=== PATIENT | male | born 1940 | race Caucasian/White ===

== ENCOUNTER 2019-11-10 13:12 | Outpatient (CLI) | payer MEDICARE, OTHER, SELFPAY ==
[2019-11-10 14:03] LABS: Basophils # 0.1 10^3/uL (0.0-0.1); Basophils % 0.7 %; Eosinophils # 0.2 10^3/uL (0.0-0.8); Eosinophils % 2.7 %; Hematocrit 38.9 % (42.0-52.0); Hemoglobin 12.4 g/dL (11.7-16.6); Lymphocytes # 2.3 10^3/uL (0.8-4.8); Lymphocytes % 31.8 %; Mean Corpuscular HGB Conc 31.9 g/dL (30.0-36.0); Mean Corpuscular Hemoglobin 30.7 pg (28.0-34.0); Mean Corpuscular Volume 96.3 fL (80-94); Mean Platelet Volume 9.8 fL (7.4-10.4); Monocytes # 0.5 10^3/uL (0.2-0.9); Monocytes % 7.2 %; Neutrophils # 4.2 10^3/uL (1.8-7.7); Neutrophils % 57.3 %; Nucleated Red Blood Cells % 0 %; Platelet Count 299 10^3/cmm (130-400); Red Blood Count 4.04 10^6/uL (4.1-5.3); Red Cell Distribution Width 13.6 % (12.1-15.1); White Blood Count 7.4 10^3/uL (4.0-10.0)
[2019-11-10 14:24] LABS: Testosterone Total 2.5 ng/dL (193-740)
[2019-11-10 14:25] LABS: Prostate Specific Antigen < 0.02 ng/mL (0-4)
[2019-11-10 14:36] LABS: Alanine Aminotransferase 16 U/L (0-41); Albumin Level 4.9 g/dL (3.5-5.2); Alkaline Phosphatase 105 IU/L (40-130); Aspartate Amino Transferase 19 U/L (0-40); Blood Urea Nitrogen 22 mg/dL (8-23); Calcium 10.8 mg/dL (8.5-10.5); Carbon Dioxide 23 mmol/L (22-29); Chloride 103 mmol/L (98-107); Globulin 2.7 g/dL (1.3-4.6); Glucose 92 mg/dL (65-115); Sodium 139 mmol/L (136-145); Total Bilirubin 0.3 mg/dL (0.15-1.2); Total Protein 7.6 g/dL (6.6-8.7)
== END 2019-11-10 13:13 | disposition home or self-care (01) ==
LOC: ONCMED 13:18
PROVIDERS: Family Provider Internal Medicine; PCP Internal Medicine; Visit Provider Internal Medicine Medical Oncology
DX: C61 Malignant neoplasm of prostate (principal)
CPT/HCPCS: 36415; 80053; 84153; 84403; 85025

== ENCOUNTER 2019-11-12 08:52 | Outpatient (CLI) | payer MEDICARE, OTHER, SELFPAY ==
--- NOTE | 2019-11-12 15:13 | ONC FU_ITS ---
Dr. Mcdonald Patient Follow-Up Note Patient: Matt Bedoya Unit #: [id number]: 1940 Dicatated By: Regino Mcdonald M.D.Date of Visit:Nov 12, 2019 Onc Med Follow-up/Prog Note Chief Complaint: Prostate cancer. History of Present Illness: This is a 79 year-old man with [place] score 7 adenocarcinoma of the prostate, stage IV (pT3a, pN1, M0), with biochemical recurrence following prostatectomy and postoperative radiation. He was initially diagnosed with [place] score 7 adenocarcinoma of the prostate in 2003. His baseline PSA was 29.77 ng/mL. He underwent radical prostatectomy in October 2003. Pathology showed multifocal extracapsular extension with positive surgical margin. There was involvement in 1/2 right pelvic nodes and 0/1 left pelvic nodes. He was started on Depo-Lupron postoperatively. I am uncertain of the duration of the initial course of androgen deprivation therapy. However, he subsequently was referred for postoperative radiation. He completed treatment in April 2004 to a total dose of 6480 cGy. Sometime later he was discovered by Dr. John to have biochemical recurrence. By the patient's recollection this was possibly in the range of 8-10 years ago. The records are currently not available. In any case, at that point he restarted androgen deprivation therapy with Depo-Lupron in combination with bicalutamide. He had a good response, and he then continued treatment with Depo-Lupron at 6-month intervals together with bicalutamide 50 mg daily. I had seen him initially in January 2019, as he had opted to continue his further care locally. His most recent Depo-Lupron injection had been in May 2018. His PSA level had been checked on 01/12/2019, and it was < 0.04 ng/mL. I reviewed treatment options, and at that point he opted to continue with intermittent androgen deprivation. However, he did want to continue the bicalutamide. His other medical illnesses include hypertension, hyperlipidemia, GERD, and gout. 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 He has a history of smoking 1/2 pack of cigarettes daily for 20 years. He quit smoking 15 years ago. He is seen for a scheduled visit. He has been feeling good generally. He has good energy and he has normal activity. ECOG score is 0. Appetite is good. He has no fever, night sweats, or hot flashes. He has some sinus drainage and cough. He has no shortness of breath or chest pain. He currently has no GI or complaints. He has a little pain in his knees. He has no other joint or bone pain. He has no focal neurologic symptoms. Medications: Allopurinol 1 Tablet (of 300 mg) Oral daily, Bicalutamide 1 Tablet (of 50 mg) Oral daily, Gemfibrozil 1 Tablet (of 600 mg) Oral b.i.d., Losartan Potassium 0.5 Tablet (of 50 mg) Oral daily, Omeprazole 1 Capsule (of 40 mg) Oral daily, Oxazepam 1 Tablet (of 10 mg) Capsule Oral PRN, Tamsulosin HCl 1 Capsule (of 0.4 mg) Oral daily Allergies: Augmentin Review of Systems: Constitutional - His energy is good. He has normal activity. His appetite is good and his weight is up a few pounds. No fever, chills, hot flashes, or night sweats. ECOG score is 0, ENMT - He has sinus drainage with a productive cough in the mornings. No mouth sores. No sore throat or difficulty swallowing, Hematologic/Lymphatic - No abnormal bruising or bleeding, Respiratory - No shortness of breath. No pleuritic pain or hemoptysis, Cardiovascular - No angina pain. No palpitations, Gastrointestinal - No nausea or vomiting. His acid reflux is adequately managed with omeprazole. No diarrhea or constipation. No blood in the stool or black stools, Genitourinary (M) - No dysuria or hematuria. His bladder is working well with the Flomax. No urinary frequency. No urgency or incontinence, Musculoskeletal - He has some pain in his knees at times. He has no other joint or bone pain, Integumentary - No skin complications, Neurologic - He has occasional sinus headaches. No dizziness. No numbness/paresthesias or other focal neurologic symptoms, Psychiatric - No anxiety or depression. No insomnia. Vital Signs: Performed on Nov 12, 2019 09:07 Height - 74.00 in Weight - 194.0 lbs (HIGH) BSA - 2.15 sq.m BMI - 24.91 Temperature - 97.3 F (LOW) Pulse - 75 /min Respiration - 18 /min BP - 117/60 mm(hg) O2 Sat - 98 % Pain - 3 Physical Examination: Constitutional - He looks good generally, Eyes - Sclerae nonicteric. Conjunctivae clear, ENMT - No lesions noted in the oral cavity, Hematologic/Lymphatic - No cervical, clavicular, or axillary adenopathy, Respiratory - Lungs are clear with good air movement bilaterally, Cardiovascular - Heart rhythm is regular. There is no murmur, gallop, or rub noted, Abdomen - Soft. Liver and spleen are not enlarged. There is no abdominal mass or ascites noted and there is no inguinal adenopathy, Extremities - No edema, Neurologic - No focal neurologic deficits noted. Lab/Imaging: Test performed on Aug 11, 2019 13:19 Iron 100 ug/dL Sodium 139 mmol/L Testosterone, Total 2.5 ng/dL Vitamin B12 327 pg/mL Potassium 4.4 mmol/L % Iron Saturation 37.1 % Chloride 103 mmol/L CO2 23 mmol/L UIBC 169 ug/dL Anion Gap 17.4 BUN 23 mg/dL Creatinine 1.3 mg/dL Cr Clearance (Est) 56.46 mL/min Glucose 106 mg/dl Calcium 10.1 mg/dL Protein, Total 7.2 g/dL Albumin 4.8 g/dL Globulin 2.4 gm/dL Bilirubin, Total 0.3 mg/dL ALT (SGPT) 14 U/L AST (SGOT) 16 U/L Alkaline Phosphatase 88 U/L WBC 6.0 10 3/uL RBC 3.73 10 6/uL HGB 11.2 g/dL HCT 34.9 % MCV 93.6 fl MCH 30.0 pg MCHC 32.1 g/dl RDW 13.4 % Platelet Count 270 10 3/cmm MPV 9.8 fl Neutrophils 3.3 10 3/uL Lymphocytes 2.1 10 3/uL Monocytes 0.5 10 3/uL Eosinophils 0.2 10 3/uL Basophils 0.0 10 3/uL Neutrophil % 53.9 % Lymphocyte % 34.5 % Monocyte % 7.8 % Eosinophil % 2.8 % Basophils % 0.7 % PSA < 0.02 ng/mL Impression: 1. Patient with [place] score 7 adenocarcinoma the prostate with biochemical recurrence following radical prostatectomy and postoperative radiation in 2003. 2. He had been on androgen deprivation therapy with Depo-Lupron and bicalutamide with adequate suppression of the PSA. His other medical illnesses include: 3. Hypertension. 4. Hyperlipidemia. 5. GERD. 6. Gout. 7. Degenerative arthritis/degenerative disease of the spine. Following his visit in January 2019 we opted to transition him to intermittent androgen deprivation. He was last given Depo-Lupron in May 2018. He did, however, continue bicalutamide. Thus far during follow-up his PSA level has remained adequately suppressed, currently < 0.02 ng/mL, and his testosterone level has remained in castrate range. He is borderline anemic. He appears to be doing well clinically. He has had improvement in his symptoms since stopping the Depo-Lupron, including resolution of hot flashes. Plan: He continues bicalutamide 50 mg daily. He will be scheduled for a follow-up visit with Dr. Kim in 3 months, and I will see magda again in 6 months. Signed By: Regino Mcdonald M.D. <<Signature on File>>
== END 2019-11-12 08:53 | disposition home or self-care (01) ==
PROVIDERS: Family Provider Internal Medicine; PCP Internal Medicine; Visit Provider Internal Medicine Medical Oncology
DX: C61 Malignant neoplasm of prostate (principal); I10 Essential (primary) hypertension; E78.5 Hyperlipidemia, unspecified; K21.9 Gastro-esophageal reflux disease without esophagitis; M10.9 Gout, unspecified; D64.9 Anemia, unspecified; M19.90 Unspecified osteoarthritis, unspecified site; Z79.899 Other long term (current) drug therapy; Z87.891 Personal history of nicotine dependence; Z92.3 Personal history of irradiation; Z92.23 Personal history of estrogen therapy; Z90.79 Acquired absence of other genital organ(s)
CPT/HCPCS: 99214

== ENCOUNTER 2020-05-17 13:43 | Outpatient (CLI) | payer MEDICARE, OTHER, SELFPAY ==
[2020-05-17 14:11] LABS: Basophils # 0.1 10^3/uL (0.0-0.1); Basophils % 0.8 %; Eosinophils # 0.2 10^3/uL (0.0-0.8); Eosinophils % 3.5 %; Hematocrit 36.6 % (42.0-52.0); Hemoglobin 11.8 g/dL (11.7-16.6); Lymphocytes # 2.2 10^3/uL (0.8-4.8); Lymphocytes % 33.8 %; Mean Corpuscular HGB Conc 32.2 g/dL (30.0-36.0); Mean Corpuscular Hemoglobin 30.4 pg (28.0-34.0); Mean Corpuscular Volume 94.3 fL (80-94); Monocytes # 0.5 10^3/uL (0.2-0.9); Monocytes % 6.8 %; Neutrophils # 3.61 10^3/uL (1.8-7.7); Neutrophils % 54.6 %; Nucleated Red Blood Cells % 0 %; Platelet Count 291 10^3/cmm (130-400); Red Blood Count 3.88 10^6/uL (4.1-5.3); White Blood Count 6.6 10^3/uL (4.0-10.0)
[2020-05-17 14:47] LABS: Prostate Specific Antigen 0.017 ng/mL (0-4); Testosterone Total 2.5 ng/dL (193-740)
[2020-05-17 14:58] LABS: Alanine Aminotransferase 15 U/L (0-41); Albumin Level 4.6 g/dL (3.5-5.2); Alkaline Phosphatase 86 IU/L (40-130); Anion Gap 17.4 (5-19); Aspartate Amino Transferase 19 U/L (0-40); Blood Urea Nitrogen 19 mg/dL (8-23); Calcium 10.2 mg/dL (8.5-10.5); Carbon Dioxide 21 mmol/L (22-29); Chloride 106 mmol/L (98-107); Globulin 2.1 g/dL (1.3-4.6); Glucose 116 mg/dL (65-115); Osmolality Calculated 287 mOsm/kg (285-295); Potassium 4.4 mmol/L (3.5-5.1); Sodium 140 mmol/L (136-145); Total Bilirubin 0.4 mg/dL (0.15-1.2); Total Protein 6.7 g/dL (6.6-8.7)
== END 2020-05-17 13:44 | disposition home or self-care (01) ==
LOC: ONCMED 13:49
PROVIDERS: PCP Internal Medicine; Visit Provider Internal Medicine Medical Oncology
DX: C61 Malignant neoplasm of prostate (principal)
CPT/HCPCS: 80053; 84153; 84403; 85025

== ENCOUNTER 2020-05-19 06:00 | Outpatient (CLI) | payer MEDICARE, OTHER, SELFPAY ==
--- NOTE | 2020-05-22 15:24 | ONC FU_ITS ---
Dr. Mcdonald Patient Follow-Up Note Patient: Matt Bedoya Unit #: [id number]: [id number] Dicatated By: Regino Mcdonald M.D.Date of Visit:May 19, 2020 Onc Med Follow-up/Prog Note Chief Complaint: Prostate cancer. History of Present Illness: This is a 79 year-old man with [place] score 7 adenocarcinoma of the prostate, stage IV (pT3a, pN1, M0), with biochemical recurrence following prostatectomy and postoperative radiation. He was initially diagnosed with [place] score 7 adenocarcinoma of the prostate in 2003. His baseline PSA was 29.77 ng/mL. He underwent radical prostatectomy in October 2003. Pathology showed multifocal extracapsular extension with positive surgical margin. There was involvement in 1/2 right pelvic nodes and 0/1 left pelvic nodes. He was started on Depo-Lupron postoperatively. I am uncertain of the duration of the initial course of androgen deprivation therapy. However, he subsequently was referred for postoperative radiation. He completed treatment in April 2004 to a total dose of 6480 cGy. Sometime later he was discovered by Dr. John to have biochemical recurrence. By the patient's recollection this was possibly in the range of 8-10 years ago. The records are currently not available. In any case, at that point he restarted androgen deprivation therapy with Depo-Lupron in combination with bicalutamide. He had a good response, and he then continued treatment with Depo-Lupron at 6-month intervals together with bicalutamide 50 mg daily. I had seen him initially in January 2019, as he had opted to continue his further care locally. His most recent Depo-Lupron injection had been in May 2018. His PSA level had been checked on 01/12/2019, and it was < 0.04 ng/mL. I reviewed treatment options, and at that point he opted to continue with intermittent androgen deprivation. However, he did want to continue the bicalutamide. His other medical illnesses include hypertension, hyperlipidemia, GERD, and gout. 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 He has a history of smoking 1/2 pack of cigarettes daily for 20 years. He quit smoking 15 years ago. He is seen for a scheduled visit. He has been feeling good generally. He has good energy and activity tolerance. ECOG score is 0. His appetite is good. He has no fever, night sweats, or hot flashes. He has some cough associated with sinus drainage. He has no shortness of breath or chest pain. He has no GI or complaints. He has pain in his right knee and he has some lower back pain. He has had frontal headache, presumably sinus related. He has no focal neurologic symptoms. Medications: Allopurinol 1 Tablet (of 300 mg) Oral daily, Bicalutamide 1 Tablet (of 50 mg) Oral daily, Gemfibrozil 1 Tablet (of 600 mg) Oral b.i.d., Losartan Potassium 0.5 Tablet (of 50 mg) Oral daily, Omeprazole 1 Capsule (of 40 mg) Oral daily, Oxazepam 1 Tablet (of 10 mg) Capsule Oral PRN, Tamsulosin HCl 1 Capsule (of 0.4 mg) Oral daily Allergies: Augmentin Review of Systems: Constitutional - He is feeling good. His energy is good and he has normal activity without restrictions. His appetite is good and his weight is down a few pounds. No fever, night sweats, or hot flashes. ECOG score is 0, ENMT - He has sinus congestion/drainage. He has some sinus pressure above his eyes. No mouth sores. No sore throat or difficulty swallowing, Hematologic/Lymphatic - No abnormal bruising or bleeding, Respiratory - No shortness of breath. No cough. No pleuritic pain or hemoptysis, Cardiovascular - No angina pain. No palpitations, Gastrointestinal - No nausea or vomiting. No heartburn or acid reflux. No diarrhea or constipation. No blood in the stool or black stools, Genitourinary (M) - No dysuria or hematuria. He has urinary frequency and nocturia. No urgency or incontinence, Musculoskeletal - His has joint pain in his right knee and he has pain in his lower back. This is chronic and unchanged, Integumentary - No skin complications, Neurologic - No headache or dizziness. No numbness or tingling. No other focal neurologic symptoms, Psychiatric - No anxiety or depression. No insomnia. Vital Signs: Performed on May 19, 2020 08:57 Height - 74.00 in Weight - 191.8 lbs (LOW) BSA - 2.13 sq.m BMI - 24.63 Temperature - 97.3 F (LOW) Pulse - 76 /min Respiration - 18 /min BP - 140/73 mm(hg) O2 Sat - 99 % Pain - 9 Physical Examination: Constitutional - He looks good generally, Eyes - Sclerae nonicteric. Conjunctivae clear, ENMT - No lesions noted in the oral cavity, Hematologic/Lymphatic - No cervical, clavicular, or axillary adenopathy, Respiratory - Lungs are clear with good air movement bilaterally, Cardiovascular - Heart rhythm is regular. There is no murmur, gallop, or rub noted, Abdomen - Soft. Liver and spleen are not enlarged. There is no abdominal mass or ascites noted and there is no inguinal adenopathy, Extremities - No edema, Neurologic - No focal neurologic deficits noted. Lab/Imaging: CBC shows hemoglobin 11.8 g, white blood cell count 6600, and platelet count 291,000. The red cell indices are borderline macrocytic. Comprehensive metabolic profile shows stable renal function with BUN 19 and creatinine 1.3 mg/dL. Liver enzymes are normal. PSA level remains low at 0.017 ng/mL. His total testosterone remains in castrate range at 2.5 ng/dL. Impression: 1. Patient with [place] score 7 adenocarcinoma the prostate with biochemical recurrence following radical prostatectomy and postoperative radiation in 2003. 2. He had been on androgen deprivation therapy with Depo-Lupron and bicalutamide with adequate suppression of the PSA. His other medical illnesses include: 3. Hypertension. 4. Hyperlipidemia. 5. GERD. 6. Gout. 7. Degenerative arthritis/degenerative disease of the spine. Following his visit in January 2019 we opted to transition him to intermittent androgen deprivation. He was last given Depo-Lupron in May 2018. He did, however, continue bicalutamide. Thus far during follow-up his PSA level has remained adequately suppressed, currently < 0.02 ng/mL, and his testosterone level has remained in castrate range. He had improvement in his symptoms after stopping the Depo-Lupron, including resolution of hot flashes. During follow-up he has continued treatment with bicalutamide, which he tolerates well. Thus far his PSA level has remained adequately suppressed. He remains borderline anemic, but he does not appear to be symptomatic with it. Overall, he appears to be doing well clinically. Plan: He continues bicalutamide 50 mg daily. He will be scheduled for a follow-up visit with Dr. Kim in 3 months, and I will see hijulito again in 6 months. Signed By: Regino Mcdonald M.D. <<Signature on File>>
== END 2020-05-19 06:01 | disposition home or self-care (01) ==
LOC: ONCMED 06:04
PROVIDERS: PCP Internal Medicine; Visit Provider Internal Medicine Medical Oncology
DX: C61 Malignant neoplasm of prostate (principal); Z90.79 Acquired absence of other genital organ(s); Z92.3 Personal history of irradiation; Z79.899 Other long term (current) drug therapy; I10 Essential (primary) hypertension; E78.5 Hyperlipidemia, unspecified; K21.9 Gastro-esophageal reflux disease without esophagitis; M47.9 Spondylosis, unspecified
CPT/HCPCS: 99214

== ENCOUNTER 2020-11-03 14:34 | Outpatient (CLI) | payer MEDICARE, OTHER, SELFPAY ==
[2020-11-03 15:16] LABS: Basophils # 0.1 10^3/uL (0.0-0.1); Basophils % 0.8 %; Eosinophils # 0.3 10^3/uL (0.0-0.8); Eosinophils % 3.1 %; Hematocrit 37.4 % (42.0-52.0); Hemoglobin 12.5 g/dL (11.7-16.6); Lymphocytes # 2.8 10^3/uL (0.8-4.8); Lymphocytes % 33.5 %; Mean Corpuscular HGB Conc 33.4 g/dL (30.0-36.0); Mean Corpuscular Hemoglobin 30.9 pg (28.0-34.0); Mean Corpuscular Volume 92.3 fL (80-94); Mean Platelet Volume 9.8 fL (7.4-10.4); Monocytes # 0.5 10^3/uL (0.2-0.9); Monocytes % 5.6 %; Neutrophils # 4.73 10^3/uL (1.8-7.7); Neutrophils % 56.6 %; Nucleated Red Blood Cells % 0 %; Platelet Count 333 10^3/cmm (130-400); Red Blood Count 4.05 10^6/uL (4.1-5.3); Red Cell Distribution Width 13.4 % (12.1-15.1); White Blood Count 8.4 10^3/uL (4.0-10.0)
[2020-11-03 15:42] LABS: Prostate Specific Antigen 0.022 ng/mL (0-4); Testosterone Total 2.5 ng/dL (193-740)
[2020-11-03 15:55] LABS: Alanine Aminotransferase 13 U/L (0-41); Albumin Level 4.6 g/dL (3.5-5.2); Alkaline Phosphatase 96 IU/L (40-130); Aspartate Amino Transferase 14 U/L (0-40); Blood Urea Nitrogen 22 mg/dL (8-23); Calcium 10.2 mg/dL (8.5-10.5); Carbon Dioxide 24 mmol/L (22-29); Chloride 104 mmol/L (98-107); Globulin 2.9 g/dL (1.3-4.6); Glucose 108 mg/dL (65-115); Osmolality Calculated 294 mOsm/kg (285-295); Sodium 140 mmol/L (136-145); Total Bilirubin 0.3 mg/dL (0.15-1.2); Total Protein 7.5 g/dL (6.6-8.7)
== END 2020-11-03 14:35 | disposition home or self-care (01) ==
LOC: ONCMED 14:39
PROVIDERS: PCP Internal Medicine; Visit Provider Internal Medicine Medical Oncology
DX: C61 Malignant neoplasm of prostate (principal); R97.20 Elevated prostate specific antigen [PSA]
CPT/HCPCS: 36415; 80053; 84153; 84403; 85025

== ENCOUNTER 2020-12-26 14:25 | Outpatient (CLI) | payer MEDICARE, OTHER, SELFPAY ==
[2020-12-26 14:57] LABS: Basophils # 0.1 10^3/uL (0.0-0.1); Basophils % 0.5 %; Eosinophils # 0.2 10^3/uL (0.0-0.8); Eosinophils % 1.7 %; Hematocrit 36.6 % (42.0-52.0); Lymphocytes # 2.5 10^3/uL (0.8-4.8); Lymphocytes % 25.2 %; Mean Corpuscular HGB Conc 32.8 g/dL (30.0-36.0); Mean Corpuscular Hemoglobin 30.5 pg (28.0-34.0); Mean Corpuscular Volume 93.1 fL (80-94); Mean Platelet Volume 9.9 fL (7.4-10.4); Monocytes # 0.6 10^3/uL (0.2-0.9); Monocytes % 5.9 %; Neutrophils # 6.53 10^3/uL (1.8-7.7); Neutrophils % 66.3 %; Nucleated Red Blood Cells % 0 %; Platelet Count 305 10^3/cmm (130-400); Red Blood Count 3.93 10^6/uL (4.1-5.3); Red Cell Distribution Width 13.4 % (12.1-15.1); White Blood Count 9.9 10^3/uL (4.0-10.0)
[2020-12-26 15:29] LABS: Prostate Specific Antigen 0.024 ng/mL (0-4); Testosterone Total 2.5 ng/dL (193-740)
[2020-12-26 15:43] LABS: Alanine Aminotransferase 11 U/L (0-41); Albumin Level 4.7 g/dL (3.5-5.2); Alkaline Phosphatase 97 IU/L (40-130); Anion Gap 15.2 (5-19); Aspartate Amino Transferase 13 U/L (0-40); Blood Urea Nitrogen 16 mg/dL (8-23); Calcium 10.1 mg/dL (8.5-10.5); Carbon Dioxide 21 mmol/L (22-29); Chloride 104 mmol/L (98-107); Globulin 2.4 g/dL (1.3-4.6); Glucose 114 mg/dL (65-115); Osmolality Calculated 284 mOsm/kg (285-295); Potassium 4.2 mmol/L (3.5-5.1); Sodium 136 mmol/L (136-145); Total Bilirubin 0.4 mg/dL (0.15-1.2); Total Protein 7.1 g/dL (6.6-8.7)
--- NOTE | 2020-12-30 07:52 | ONC FU_ITS ---
Dr. Mcdonald Patient Follow-Up Note Patient: Matt Bedoya Unit #: [id number]: [id number] Dicatated By: Regino Mcdonald M.D.Date of Visit:Dec 26, 2020 Onc Med Follow-up/Prog Note Chief Complaint: Prostate cancer. History of Present Illness: This is an 80 year-old man with [place] score 7 (4 + 3) adenocarcinoma of the prostate, stage IV (pT3a, pN1, M0), with biochemical recurrence following prostatectomy and postoperative radiation. He was initially diagnosed with [place] score 7 (4 + 3 ) adenocarcinoma of the prostate in 2003. His baseline PSA was 29.77 ng/mL. He underwent radical prostatectomy in October 2003. Pathology showed multifocal extracapsular extension with positive surgical margin. There was involvement in 1/2 right pelvic nodes and 0/1 left pelvic nodes. He was started on Depo-Lupron postoperatively. I was not able to determine the duration of the initial course of androgen deprivation therapy. However, he subsequently was referred for postoperative radiation. He completed treatment in April 2004 to a total dose of 6480 cGy. Sometime later he was discovered by Dr. John to have biochemical recurrence. By the patient's recollection this was sometime around 2009. The records were not available. In any case, at that point he restarted androgen deprivation therapy with Depo-Lupron in combination with bicalutamide. He had a good response, and he then continued treatment with Depo-Lupron at 6-month intervals together with bicalutamide 50 mg daily. I had seen him initially in January 2019, as he had opted to continue his further care locally. His most recent Depo-Lupron injection had been in May 2018. His PSA level had been checked on 01/12/2019, and it was < 0.04 ng/mL. I reviewed treatment options, and at that point he opted to continue with intermittent androgen deprivation. However, he did want to continue the bicalutamide. His other medical illnesses include hypertension, hyperlipidemia, GERD, and gout. 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 He has a history of smoking 1/2 pack of cigarettes daily for 20 years. He quit smoking 15 years ago. INTERIM HISTORY: After stopping the androgen deprivation therapy he did have resolution of hot flashes and other symptoms associated with his androgen deprivation therapy. During subsequent follow-up his PSA level has remained suppressed. His total testosterone levels, interestingly, have also remained in castrate range. He is seen for a scheduled visit. He has been feeling pretty good generally. He did have a brief febrile illness sometime in August or September, but he did test negative for COVID-19. He has pretty good energy and he has normal activity. Appetite is good. He has had no other fever and he does not complain of hot flashes or night sweating. He has some sinus drainage and cough. He does not complain of shortness of breath or chest pain. He has no GI or complaints. He has had some mild musculoskeletal pain, mainly in the neck. He has occasional sinus headache. He has no focal neurologic symptoms. Medications: Allopurinol 1 Tablet (of 300 mg) Oral daily, Bicalutamide 1 Tablet (of 50 mg) Oral daily, Gemfibrozil 1 Tablet (of 600 mg) Oral b.i.d., Losartan Potassium 0.5 Tablet (of 50 mg) Oral daily, Omeprazole 1 Capsule (of 40 mg) Oral daily, Oxazepam 1 Tablet (of 10 mg) Capsule Oral PRN, Tamsulosin HCl 1 Capsule (of 0.4 mg) Oral daily Allergies: Augmentin Vital Signs: Performed on Dec 26, 2020 16:12 Height - 74.00 in Weight - 187.8 lbs (LOW) BSA - 2.12 sq.m BMI - 24.11 Temperature - 98.2 F (LOW) Pulse - 76 /min Respiration - 18 /min BP - 152/75 mm(hg) (HIGH) O2 Sat - 96 % Pain - 0 Fatigue - 0 Physical Examination: Constitutional - He looks good generally, Eyes - Sclerae nonicteric. Conjunctivae clear, ENMT - No lesions noted in the oral cavity, Hematologic/Lymphatic - No cervical, clavicular, or axillary adenopathy, Respiratory - Lungs are clear with good air movement bilaterally, Cardiovascular - Heart rhythm is regular. There is no murmur, gallop, or rub noted, Abdomen - Soft. Liver and spleen are not enlarged. There is no abdominal mass or ascites noted and there is no inguinal adenopathy, Extremities - No edema, Neurologic - No focal neurologic deficits noted. Lab/Imaging: CBC shows hemoglobin 12.0 g, white blood cell count 9900, and platelet count 305,000. Comprehensive metabolic profile is unremarkable. His PSA is stable at 0.024 ng/mL with testosterone level 2.5 ng/dL. Problem List: 1. [place] score 7 (4 + 3) adenocarcinoma the prostate with biochemical recurrence following radical prostatectomy and postoperative radiation in 2003. 2. Hypertension. 3. Hyperlipidemia. 4. GERD. 5. Gout. 6. Degenerative arthritis/degenerative disease of the spine. Problems Addressed with this Encounter and Plan: Patient with [place] score 7 (4 + 3) adenocarcinoma the prostate with biochemical recurrence following radical prostatectomy and postoperative radiation in 2003. He began on androgen deprivation therapy with Depo-Lupron and bicalutamide sometime around 2009. He had a good response by PSA level. Following his visit in January 2019 we opted to transition him to intermittent androgen deprivation. He was last given Depo-Lupron in May 2018. He did, however, continue bicalutamide. Thus far during follow-up his PSA level has remained adequately suppressed. Interestingly, his testosterone level has remained in castrate range. He had improvement in his symptoms after stopping the Depo-Lupron, including resolution of hot flashes. Overall he has been doing very well clinically. He has remained borderline anemic, but he is not symptomatic with it. He has had no other adverse effects with the bicalutamide. His current PSA level remains adequately suppressed at 0.024 mg/dL. He will continue bicalutamide 50 mg daily. He will be scheduled for a follow-up visit with Dr. Kim in 3 months, and I will see magda again in 6 months. Signed By: Regino Mcdonald M.D. <<Signature on File>>
== END 2020-12-26 14:26 | disposition home or self-care (01) ==
LOC: ONCMED 14:30
PROVIDERS: PCP Internal Medicine; Visit Provider Internal Medicine Medical Oncology
DX: C61 Malignant neoplasm of prostate (principal); I10 Essential (primary) hypertension; E78.5 Hyperlipidemia, unspecified; K21.9 Gastro-esophageal reflux disease without esophagitis; M10.9 Gout, unspecified; M47.9 Spondylosis, unspecified; Z79.818 Long term (current) use of other agents affecting estrogen receptors and estrogen levels; Z79.899 Other long term (current) drug therapy
CPT/HCPCS: 36415; 80053; 84153; 84403; 85025; 99214

== ENCOUNTER 2021-03-29 10:20 | Outpatient (CLI) | payer MEDICARE, OTHER, SELFPAY ==
[2021-03-29 11:44] LABS: Prostate Specific Antigen 0.026 ng/mL (0-4)
== END 2021-03-29 10:21 | disposition home or self-care (01) ==
LOC: ONCMED 10:26
PROVIDERS: PCP Internal Medicine; Visit Provider Internal Medicine Medical Oncology
DX: C61 Malignant neoplasm of prostate (principal)
CPT/HCPCS: 36415; 84153

== ENCOUNTER 2021-06-15 10:11 | Outpatient (CLI) | payer MEDICARE, OTHER, SELFPAY ==
[2021-06-15 10:20] VITALS: BP 131/69; PULSE 82; RESP 18; TEMP 36.7; O2SAT 97; BMI 23.7
[2021-06-15 10:50] VITALS: BP 100/59; PULSE 77; RESP 16; TEMP 36.8; O2SAT 97
[2021-06-15 11:40] VITALS: BP 112/63; PULSE 69; RESP 16; TEMP 36.6
== END 2021-06-15 10:12 | disposition home or self-care (01) ==
PROVIDERS: PCP Internal Medicine; Visit Provider Physician Assistant
DX: U07.1 COVID-19 (principal)
CPT/HCPCS: 96365

== ENCOUNTER 2021-07-12 13:48 | Outpatient (CLI) | payer MEDICARE, OTHER, SELFPAY ==
[2021-07-12 14:45] LABS: Basophils % 0.6 %; Eosinophils # 0.3 10^3/uL (0.0-0.8); Eosinophils % 3.8 %; Hemoglobin 12.5 g/dL (11.7-16.6); Lymphocytes # 2.5 10^3/uL (0.8-4.8); Lymphocytes % 35.4 %; Mean Corpuscular HGB Conc 32.1 g/dL (30.0-36.0); Mean Corpuscular Hemoglobin 29.9 pg (28.0-34.0); Mean Corpuscular Volume 93.3 fl (80-94); Mean Platelet Volume 10.1 fL (7.4-10.4); Monocytes # 0.4 10^3/uL (0.2-0.9); Monocytes % 5.6 %; Neutrophils # 3.89 10^3/uL (1.8-7.7); Neutrophils % 54.5 %; Nucleated Red Blood Cells % 0 %; Platelet Count 254 10^3/cmm (130-400); Red Blood Count 4.18 10^6/uL (4.1-5.3); White Blood Count 7.1 10^3/uL (4.0-10.0)
[2021-07-12 15:25] LABS: Prostate Specific Antigen 0.023 ng/mL (0-4)
[2021-07-12 15:26] LABS: Testosterone Total < 2.5 ng/dL (193-740)
[2021-07-12 15:41] LABS: Alanine Aminotransferase 15 U/L (0-41); Albumin Level 4.2 g/dL (3.5-5.2); Alkaline Phosphatase 97 IU/L (40-130); Anion Gap 18.1 (5-19); Aspartate Amino Transferase 15 U/L (0-40); Blood Urea Nitrogen 15 mg/dL (8-23); Calcium 10.1 mg/dL (8.5-10.5); Carbon Dioxide 20 mmol/L (22-29); Chloride 104 mmol/L (98-107); Globulin 2.7 g/dL (1.3-4.6); Glucose 96 mg/dL (65-115); Osmolality Calculated 287 mOsm/kg (285-295); Potassium 4.1 mmol/L (3.5-5.1); Sodium 138 mmol/L (136-145); Total Bilirubin 0.3 mg/dL (0.15-1.2); Total Protein 6.9 g/dL (6.6-8.7)
--- NOTE | 2021-07-15 08:30 | ONC FU_ITS ---
Dr. Mcdonald Patient Follow-Up Note Patient: Matt Bedoya Unit #: [id number]: 1940 Dicatated By: Regino Mcdonald M.D.Date of Visit:Jul 12, 2021 Onc Med Follow-up/Prog Note Chief Complaint: Prostate cancer. History of Present Illness: This is an 81 year-old man with [place] score 7 (4 + 3) adenocarcinoma of the prostate, stage IV (pT3a, pN1, M0), with biochemical recurrence following prostatectomy and postoperative radiation. He was initially diagnosed with Marina score 7 (4 + 3 ) adenocarcinoma of the prostate in 2003. His baseline PSA was 29.77 ng/mL. He underwent radical prostatectomy in October 2003. Pathology showed multifocal extracapsular extension with positive surgical margin. There was involvement in 1/2 right pelvic nodes and 0/1 left pelvic nodes. He was started on Depo-Lupron postoperatively. I was not able to determine the duration of the initial course of androgen deprivation therapy. However, he subsequently was referred for postoperative radiation. He completed treatment in April 2004 to a total dose of 6480 cGy. Sometime later he was discovered by Dr. John to have biochemical recurrence. By the patient's recollection this was sometime around 2009. The records were not available. In any case, at that point he restarted androgen deprivation therapy with Depo-Lupron in combination with bicalutamide. He had a good response, and he then continued treatment with Depo-Lupron at 6-month intervals together with bicalutamide 50 mg daily. I had seen him initially in January 2019, as he had opted to continue his further care locally. His most recent Depo-Lupron injection had been in May 2018. His PSA level had been checked on 01/12/2019, and it was < 0.04 ng/mL. I reviewed treatment options, and at that point he opted to continue with intermittent androgen deprivation. However, he did want to continue the bicalutamide. His other medical illnesses include hypertension, hyperlipidemia, GERD, and gout. 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 He has a history of smoking 1/2 pack of cigarettes daily for 20 years. He quit smoking 15 years ago. INTERIM HISTORY: After stopping the androgen deprivation therapy he did have resolution of hot flashes and other symptoms associated with his androgen deprivation therapy. During subsequent follow-up his PSA level has remained suppressed. His total testosterone levels, interestingly, have also remained in castrate range. He is seen for a scheduled visit. He has been feeling great, though he says he did have COVID-19 virus infection for 5 weeks ago. He was symptomatic enough to have the antibody infusion, but he recovered uneventfully. He now has good energy and activity tolerance. ECOG score is 0. His appetite is still a little off. He is not having fever and he does not complain of hot flashes or night sweating. He has occasional sinus drainage and he sometimes has cough with it. He does not complain of shortness of breath or chest pain. He currently has no GI complaints. Bladder function remains adequate with tamsulosin. For the past couple of years he has had lower back pain which acts up occasionally, and he does see Dr. Colon for that. He has no other joint or bone pain. He does not complain of headache or dizziness, and he has no focal neurologic symptoms. Medications: Allopurinol 1 Tablet (of 300 mg) Oral daily, Bicalutamide 1 Tablet (of 50 mg) Oral daily, Gemfibrozil 1 Tablet (of 600 mg) Oral b.i.d., Losartan Potassium 0.5 Tablet (of 50 mg) Oral daily, Omeprazole 1 Capsule (of 40 mg) Oral daily, Oxazepam 1 Tablet (of 10 mg) Capsule Oral PRN, Tamsulosin HCl 1 Capsule (of 0.4 mg) Oral daily Allergies: Augmentin Vital Signs: Performed on Jul 12, 2021 15:57 Height - 74.00 in Weight - 184 lbs (LOW) BSA - 2.10 sq.m BMI - 23.62 Temperature - 97.4 F (LOW) Pulse - 76 /min Respiration - 18 /min BP - 131/70 mm(hg) O2 Sat - 96 % Pain - 0 Fatigue - 0 Physical Examination: Constitutional - He looks good generally, Eyes - Sclerae nonicteric. Conjunctivae clear, ENMT - No lesions noted in the oral cavity, Hematologic/Lymphatic - No cervical, clavicular, or axillary adenopathy, Respiratory - Lungs are clear with good air movement bilaterally, Cardiovascular - Heart rhythm is regular. There is no murmur, gallop, or rub noted, Abdomen - Soft. Liver and spleen are not enlarged. There is no abdominal mass or ascites noted and there is no inguinal adenopathy, Extremities - No edema, Neurologic - No focal neurologic deficits noted. Lab/Imaging: Test performed on Jul 12, 2021 14:10 Sodium 138 mmol/L Testosterone, Total < 2.5 ng/dL Potassium 4.1 mmol/L Chloride 104 mmol/L CO2 20 mmol/L Anion Gap 18.1 BUN 15 mg/dL Creatinine 1.1 mg/dL Cr Clearance (Est) 62.18 mL/min Glucose 96 mg/dL Osmolality - Calculated 287 mOsm/kg Calcium 10.1 mg/dL Protein, Total 6.9 g/dL Albumin 4.2 g/dL Globulin 2.7 g/dL Bilirubin, Total 0.3 mg/dL ALT (SGPT) 15 U/L AST (SGOT) 15 U/L Alkaline Phosphatase 97 IU/L WBC 7.1 10 3/uL RBC 4.18 10 6/uL HGB 12.5 g/dL HCT 39.0 % MCV 93.3 fl MCH 29.9 pg MCHC 32.1 g/dL RDW 14.0 % Platelet Count 254 10 3/cmm MPV 10.1 fL Neutrophils 3.89 10 3/uL Lymphocytes 2.5 10 3/uL Monocytes 0.4 10 3/uL Eosinophils 0.3 10 3/uL Basophils 0.0 10 3/uL Neutrophil % 54.5 % Lymphocyte % 35.4 % Monocyte % 5.6 % Eosinophil % 3.8 % Basophils % 0.6 % NRBC % 0 % PSA 0.023 ng/mL Problem List: 1. Marina score 7 (4 + 3) adenocarcinoma the prostate with biochemical recurrence following radical prostatectomy and postoperative radiation in 2003. 2. Hypertension. 3. Hyperlipidemia. 4. GERD. 5. Gout. 6. Degenerative arthritis/degenerative disease of the spine. Problems Addressed with this Encounter and Plan: 1. Patient with Marina score 7 (4 + 3) adenocarcinoma the prostate with biochemical recurrence following radical prostatectomy and postoperative radiation in 2003. He began on androgen deprivation therapy with Depo-Lupron and bicalutamide sometime around 2009. He had a good response by PSA level. Following his visit in January 2019 we opted to transition him to intermittent androgen deprivation. He was last given Depo-Lupron in May 2018. He did, however, continue bicalutamide. Thus far during follow-up his PSA level has remained adequately suppressed. Interestingly, his testosterone level has remained in castrate range. He had improvement in his symptoms after stopping the Depo-Lupron, including resolution of hot flashes. Overall he has been doing very well clinically. He has remained borderline anemic, but he has not been symptomatic with it. He has had no other adverse effects with the bicalutamide. At this point his hemoglobin remains borderline low at 12.5 g. His PSA remains adequately suppressed at 0.023 ng/mL and his testosterone level remains in castrate range at <2.5 ng/dL. He will continue bicalutamide 50 mg daily. He will be scheduled for laboratory studies in 3 months and for a follow-up visit in 6 months. 2. He is at risk for osteoporosis due to his antiandrogen therapy. As such, he will be scheduled for DEXA scan. He will be given treatment for bone health as indicated. Signed By: Regino Mcdonald M.D. <<Signature on File>>
== END 2021-07-12 13:49 | disposition home or self-care (01) ==
LOC: ONCMED 13:51
PROVIDERS: PCP Internal Medicine; Visit Provider Internal Medicine Medical Oncology
DX: C61 Malignant neoplasm of prostate (principal); I10 Essential (primary) hypertension; E78.5 Hyperlipidemia, unspecified; K21.9 Gastro-esophageal reflux disease without esophagitis; M10.9 Gout, unspecified; M19.90 Unspecified osteoarthritis, unspecified site; M47.9 Spondylosis, unspecified; Z79.899 Other long term (current) drug therapy; Z79.818 Long term (current) use of other agents affecting estrogen receptors and estrogen levels
CPT/HCPCS: 36415; 80053; 84153; 84403; 85025; 99214

== ENCOUNTER 2021-07-20 13:35 | Outpatient (CLI) | payer MEDICARE, OTHER, SELFPAY ==
--- NOTE | 2021-07-20 13:40 | XR_ITS ---
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 FINDINGS: The L1-L4 bone mineral density measures 1.199 g/cm2. This corresponds to a T score score of -0.2 and Z score of 0.4. Left femoral neck bone mineral density measures 0.837 g/cm2. This corresponds to a T score of -1.8 an d Z score of -0.8. Right femoral neck bone mineral density measures 0.826 g/cm2. This corresponds to a T score -1.9of an d Z score of -0.9. Mean femoral neck bone mineral density measures 0.831 g/cm2. This corresponds to a T score of -1.9 an d Z score of -0.8. XR/XR DEXA axial skeleton* [id number] IMPRESSION: Osteopenia in the femoral necks. Lumbar spine demonstrates normal bone minerali zation but likely spuriously elevated due to endplate sclerosis. Patient's FRAX calculated 10 year probability for major osteoporotic fracture i s 8.6 % and osteoporotic hip fracture is 3.4%.
== END 2021-07-20 13:36 | disposition home or self-care (01) ==
PROVIDERS: PCP Internal Medicine; Visit Provider Internal Medicine Medical Oncology
DX: C61 Malignant neoplasm of prostate (principal); Z79.899 Other long term (current) drug therapy; M85.88 Other specified disorders of bone density and structure, other site
CPT/HCPCS: 77080

== ENCOUNTER 2021-08-02 12:58 | Outpatient (CLI) | payer MEDICARE, OTHER, SELFPAY | END 2021-08-02 12:59 | disposition home or self-care (01) | LOC: ONCMED 13:03 | PROVIDERS: PCP Internal Medicine; Visit Provider Internal Medicine Medical Oncology | DX: M81.0 Age-related osteoporosis without current pathological fracture (principal) | CPT/HCPCS: 96372; J0897 ==

== ENCOUNTER 2021-10-17 13:34 | Outpatient (CLI) | payer MEDICARE, OTHER, SELFPAY ==
[2021-10-17 14:31] LABS: Prostate Specific Antigen 0.033 ng/mL (0-4)
[2021-10-17 14:34] LABS: Testosterone Total < 2.5 ng/dL (193-740)
== END 2021-10-17 13:35 | disposition home or self-care (01) ==
PROVIDERS: PCP Internal Medicine; Visit Provider Internal Medicine Medical Oncology
DX: C61 Malignant neoplasm of prostate (principal)
CPT/HCPCS: 36415; 84153; 84403

== ENCOUNTER → 2021-12-28 09:26 | Outpatient (BNVA) | payer MEDICARE, OTHER, SELFPAY | PROVIDERS: PCP Internal Medicine; Visit Provider Urology | DX: R30.0 Dysuria (principal); C61 Malignant neoplasm of prostate; R31.0 Gross hematuria | CPT/HCPCS: 81003 ==

== ENCOUNTER 2022-03-19 13:25 | Oncology outpatient (recurring) (ONCR) | payer MEDICARE, OTHER, SELFPAY ==
[2022-03-19 13:48] LABS: Basophils % 0.4 %; Eosinophils # 0.3 10^3/uL (0.0-0.8); Eosinophils % 2.9 %; Hematocrit 35.4 % (42.0-52.0); Hemoglobin 11.7 g/dL (11.7-16.6); Lymphocytes # 2.7 10^3/uL (0.8-4.8); Lymphocytes % 27.9 %; Mean Corpuscular HGB Conc 33.1 g/dL (30.0-36.0); Mean Corpuscular Hemoglobin 30.9 pg (28.0-34.0); Mean Corpuscular Volume 93.4 fl (80-94); Mean Platelet Volume 10.1 fL (7.4-10.4); Monocytes # 0.5 10^3/uL (0.2-0.9); Monocytes % 4.7 %; Neutrophils # 6.21 10^3/uL (1.8-7.7); Neutrophils % 63.6 %; Nucleated Red Blood Cells % 0 %; Platelet Count 274 10^3/cmm (130-400); Red Blood Count 3.79 10^6/uL (4.1-5.3); Red Cell Distribution Width 13.8 % (12.1-15.1); White Blood Count 9.8 10^3/uL (4.0-10.0)
[2022-03-19 14:13] LABS: Alanine Aminotransferase 6 U/L (0-41); Albumin Level 4.5 g/dL (3.5-5.2); Alkaline Phosphatase 60 IU/L (40-130); Anion Gap 15.4 (5-19); Aspartate Amino Transferase 17 U/L (0-40); Blood Urea Nitrogen 23 mg/dL (8-23); Calcium 10.9 mg/dL (8.5-10.5); Carbon Dioxide 21 mmol/L (22-29); Chloride 108 mmol/L (98-107); Globulin 2.5 g/dL (1.3-4.6); Glucose 107 mg/dL (65-115); Osmolality Calculated 294 mOsm/kg (285-295); Potassium 4.4 mmol/L (3.5-5.1); Prostate Specific Antigen 0.033 ng/mL (0-4); Sodium 140 mmol/L (136-145); Total Bilirubin 0.3 mg/dL (0.15-1.2)
[2022-03-19 15:14] LABS: Testosterone Total 2.5 ng/dL (193-740)
== END 2022-03-22 23:59 | disposition home or self-care (01) ==
PROVIDERS: PCP Internal Medicine; Visit Provider Internal Medicine Medical Oncology
DX: C61 Malignant neoplasm of prostate (principal); D64.9 Anemia, unspecified; Z79.818 Long term (current) use of other agents affecting estrogen receptors and estrogen levels; Z79.899 Other long term (current) drug therapy; Z87.891 Personal history of nicotine dependence
CPT/HCPCS: 80053; 84153; 84403; 85025; 99214

== ENCOUNTER 2022-06-19 13:20 | Oncology outpatient (recurring) (ONCR) | payer MEDICARE, OTHER, SELFPAY | END 2022-06-22 23:59 | disposition home or self-care (01) | PROVIDERS: PCP Internal Medicine; Visit Provider Internal Medicine Medical Oncology | DX: C61 Malignant neoplasm of prostate (principal) | CPT/HCPCS: 80053; 84153; 84403; 85025 ==

== ENCOUNTER 2022-08-20 07:35 | Outpatient (CLI) | payer MEDICARE, OTHER, SELFPAY ==
--- NOTE | 2022-08-20 07:47 | NM_ITS ---
WS: [id number] NUCLEAR MEDICINE HIDA SCAN CLINICAL INFORMATION: GENERALIZED ABDOMINAL PAIN TECHNIQUE: Following intravenous administration of 4.9 mCi of technetium 99m mebrofenin, images of th e abdomen were obtained over the course of 60 minutes. Next, gallbladder ejection fraction was determ ined by obtaining preprandial and one-hour postprandial images of the gallbladder following oral maria l stion of Ensure. COMPARISON: Ultrasound June 20 2022 FINDINGS: Normal hepatic uptake at 5 minutes.Normal hepatic excretion. Gallbladder is visualized by 15 minutes. No evidence of acute cholecystitis. Normal common bile duct and small bowel activity. Gallbladder ejection fraction 70% within normal limits. No evidence of chronic cholecystitis. NM/NM hepatobiliary w phar* [id number] IMPRESSION: 1. No evidence of acute or chronic cholecystitis. 2. Gallbladder ejection fraction 70% within normal limits.
== END 2022-08-20 07:36 | disposition home or self-care (01) ==
LOC: RAD 07:40
PROVIDERS: PCP Internal Medicine; Visit Provider Internal Medicine
DX: R10.84 Generalized abdominal pain (principal)
CPT/HCPCS: 78227; A9537

== ENCOUNTER → 2022-09-27 07:57 | Outpatient (BNVA) | payer MEDICARE, OTHER, SELFPAY | PROVIDERS: PCP Internal Medicine; Referring Provider Internal Medicine; Visit Provider Internal Medicine | DX: E05.90 Thyrotoxicosis, unspecified without thyrotoxic crisis or storm (principal); E21.3 Hyperparathyroidism, unspecified; R10.9 Unspecified abdominal pain | CPT/HCPCS: 82310; 83970; 99204 ==

== ENCOUNTER 2022-10-05 07:26 | Outpatient (CLI) | payer MEDICARE, OTHER, SELFPAY ==
--- NOTE | 2022-10-05 07:40 | CT_ITS ---
WS: [id number] CT ABDOMEN PELVIS TECHNIQUE: Contrast-enhanced CT of the abdomen and pelvis with coronal and sagittal reformatted image s. CLINICAL INFORMATION: ABD PAIN/WEIGHT LOSS/HX OF PROSTATE CA COMPARISON: None. DLP: 1134.[address] scans at [facility] use at least one of these dose optimization techniques: automated e xposure control; mA and/or kV adjustment per patient size (includes targeted exams where dose is matc hed to clinical indication); or iterative reconstruction. FINDINGS: Normal liver. Normal portal vein and splenic vein. Cholelithiasis. No gallbladder wall thickening or pericholecystic fluid. Normal portal vein and splenic vein. Normal pancreatic parenchymal enhancement . Tiny esophageal hiatal hernia. Calcified granulomas in the lung bases. Normal bilateral renal paren chymal enhancement. Atrophic LEFT kidney. Small renal cysts. Small fat-containing LEFT greater than R IGHT inguinal hernias. Degenerative cystic changes involving the LEFT femoral neck. Degenerative arthritis lumbar spine with disc space narrowing worse at L2-L3 and L4-L5 with subchondral cystic change. CT/CT abdomen pelvis w con* [id number] IMPRESSION: 1. Cholelithiasis. No gallbladder wall thickening or pericholecystic fluid. 2. No hydronephrosis in either kidney. Atrophic LEFT kidney. 3. No abdominal or pelvic lymphadenopathy. 4. No evidence of small or large bowel obstruction. 5. No abdominal or pelvic lymphadenopathy.
[2022-10-05] MEDS: iohexol 350 mg/mL 500 mL Btl (per mL) IV (08:30)
[2022-10-05 10:03] LABS: Blood Urea Nitrogen 19 mg/dL (8-23)
== END 2022-10-05 07:27 | disposition home or self-care (01) ==
PROVIDERS: PCP Internal Medicine; Visit Provider Surgery
DX: R10.9 Unspecified abdominal pain (principal); R63.4 Abnormal weight loss; Z85.46 Personal history of malignant neoplasm of prostate; K80.20 Calculus of gallbladder without cholecystitis without obstruction; N26.1 Atrophy of kidney (terminal)
CPT/HCPCS: 74177; 82565; 84520; Q9967

== ENCOUNTER 2022-10-16 11:02 | Oncology outpatient (recurring) (ONCR) | payer MEDICARE, OTHER, SELFPAY ==
[2022-10-16 12:14] LABS: Calcium 11.4 mg/dL (8.5-10.5)
[2022-10-16 14:25] LABS: Sodium 140 mmol/L (136-145)
[2022-10-16 14:26] LABS: Alanine Aminotransferase 12 U/L (0-41); Albumin Level 4.6 g/dL (3.5-5.2); Alkaline Phosphatase 142 U/L (40-130); Anion Gap 17.7 (5-19); Aspartate Amino Transferase 16 U/L (0-40); Blood Urea Nitrogen 23 mg/dL (8-23); Calcium 11.4 mg/dL (8.5-10.5); Carbon Dioxide 23 mmol/L (22-29); Chloride 104 mmol/L (98-107); Globulin 2.4 g/dL (1.3-4.6); Glucose 107 mg/dL (65-115); Osmolality Calculated 294 mOsm/kg (285-295); Potassium 4.7 mmol/L (3.5-5.1); Total Bilirubin 0.3 mg/dL (0.15-1.2)
== END 2022-10-23 23:59 | disposition home or self-care (01) ==
PROVIDERS: PCP Internal Medicine; Visit Provider Internal Medicine
DX: C61 Malignant neoplasm of prostate (principal); Z90.89 Acquired absence of other organs; D64.9 Anemia, unspecified; E21.3 Hyperparathyroidism, unspecified; Z79.818 Long term (current) use of other agents affecting estrogen receptors and estrogen levels; Z79.899 Other long term (current) drug therapy; Z87.891 Personal history of nicotine dependence
CPT/HCPCS: 36415; 80053; 82310; 99214

== ENCOUNTER 2022-11-01 09:13 | Outpatient (CLI) | payer MEDICARE, OTHER, SELFPAY ==
--- NOTE | 2022-11-01 09:26 | NM_ITS ---
WS: [email or web address] NUCLEAR MEDICINE PARATHYROID SCINTIGRAPHY INDICATION: Hyperparathyroidism. Increased calcium levels. TECHNIQUE: Parathyroid scintigraphy with 21.8 mCi of sestamibi was administered. AP and oblique views obtained with and without chin and suprasternal notch markers. Early and late imaging obtained. FINDINGS: Initial imaging demonstrates normal salivary gland uptake. Asymmetric increased uptake invo lving the RIGHT lower thyroid lobe. Homogeneous low grade uptake involving the LEFT thyroid lobe. No focal cold defects appreciated. Persistent intense focal uptake in the RIGHT lower lobe on the delayed imaging with normal washout of the LEFT thyroid. Findings suspicious for adenoma and correlation with ultrasound thyroid could be h elpful. No other suspicious findings. NM/NM parathyroid [id number] IMPRESSION: 1. Persistent intense focal activity in the RIGHT inferior thyroid lobe on the delayed imaging suspicious for retained parathyroid adenoma activity. This andrey ears to be slightly medial and posterior along the inferior thyroid lobe. 2. Recommend further evaluation with ultrasound for better anatomic detail. 3. Normal LEFT thyroid lobe washout.
== END 2022-11-01 09:14 | disposition home or self-care (01) ==
LOC: RAD 09:15
PROVIDERS: PCP Internal Medicine; Visit Provider Internal Medicine
DX: E21.3 Hyperparathyroidism, unspecified (principal)
CPT/HCPCS: 78070; 99214; A9500

== ENCOUNTER → 2022-12-19 14:04 | Outpatient (BNVA) | payer MEDICARE, OTHER, SELFPAY | PROVIDERS: PCP Internal Medicine; Visit Provider Internal Medicine | DX: E21.0 Primary hyperparathyroidism (principal) | CPT/HCPCS: 36415; 80053; 99214 ==

== ENCOUNTER 2022-12-20 14:47 | Outpatient (CLI) | payer MEDICARE, OTHER, SELFPAY ==
[2022-12-20 15:47] LABS: Calcium 12.9 mg/dL (8.5-10.5)
[2022-12-20 15:54] LABS: Parathyroid Hormone 287.1 pg/mL (15-65)
== END 2022-12-20 14:48 | disposition home or self-care (01) ==
LOC: LAB 14:52
PROVIDERS: PCP Internal Medicine; Visit Provider Internal Medicine
DX: E21.0 Primary hyperparathyroidism (principal)
CPT/HCPCS: 36415; 82310; 83970

== ENCOUNTER → 2022-12-27 10:21 | Outpatient (BNVA) | payer MEDICARE, OTHER, SELFPAY | PROVIDERS: PCP Internal Medicine; Visit Provider Urology | DX: C61 Malignant neoplasm of prostate (principal); Z87.440 Personal history of urinary (tract) infections; Z90.79 Acquired absence of other genital organ(s); R31.0 Gross hematuria | CPT/HCPCS: 81003; 99213 ==

== ENCOUNTER 2023-01-14 11:05 | Oncology outpatient (recurring) (ONCR) | payer MEDICARE, OTHER, SELFPAY ==
[2023-01-14 12:33] LABS: Alanine Aminotransferase 9 U/L (0-41); Albumin Level 4.1 g/dL (3.5-5.2); Alkaline Phosphatase 116 U/L (40-130); Anion Gap 15.6 (5-19); Aspartate Amino Transferase 16 U/L (0-40); Blood Urea Nitrogen 19 mg/dL (8-23); Calcium 10.8 mg/dL (8.5-10.5); Carbon Dioxide 20 mmol/L (22-29); Chloride 108 mmol/L (98-107); Globulin 2.3 g/dL (1.3-4.6); Glucose 94 mg/dL (65-115); Osmolality Calculated 290 mOsm/kg (285-295); Potassium 4.6 mmol/L (3.5-5.1); Sodium 139 mmol/L (136-145); Total Bilirubin 0.2 mg/dL (0.15-1.2); Total Protein 6.4 g/dL (6.6-8.7)
== END 2023-01-20 23:59 | disposition home or self-care (01) ==
LOC: ONCMED 11:07
PROVIDERS: PCP Internal Medicine; Visit Provider Internal Medicine Medical Oncology
DX: C61 Malignant neoplasm of prostate (principal)
CPT/HCPCS: 36415; 80053; 84153

== ENCOUNTER → 2023-02-19 14:48 | Outpatient (BNVA) | payer MEDICARE, OTHER, SELFPAY | PROVIDERS: PCP Internal Medicine; Visit Provider Internal Medicine | DX: E21.0 Primary hyperparathyroidism (principal); R53.83 Other fatigue | CPT/HCPCS: 99213; 99214 ==

== ENCOUNTER 2023-02-20 12:16 | Outpatient (CLI) | payer MEDICARE, OTHER, SELFPAY ==
--- NOTE | 2023-02-20 12:26 | MR_ITS ---
WS: [id number] MRI HEAD WITH CONTRAST WITH ATTENTION TO THE INTERNAL AUDITORY CANALS TECHNIQUE: Sagittal T1, T2 axial, T2 axial flair, axial susceptibility weighted imaging, axial diffus ion weighted images, and coronal T2 images were obtained. Pre and post T1 axial and post T1 coronal i mages. ADC and FSPGR images. Post gadolinium images with attention to the internal auditory canals. A xial fiesta imaging. CLINICAL INFORMATION: SENSORINEURAL HEARING LOSS, BILATERAL COMPARISON: None. FINDINGS: No evidence of restricted diffusion to suggest acute ischemia. Ventricular system and basal cisterns are patent. Mild small vessel changes. Mild small vessel changes in the jeremiah. Moderate parenchymal vo lume loss. Normal posterior fossa. Normal vascular flow voids at the skull base. No extra axial fluid collections. No evidence of mass or mass effect. Mild mucosal thickening in the paranasal sinuses. M astoid air cells well aerated. Mild mucosal thickening RIGHT mastoid tip. Normal posterior nasopharyn x. Normal parapharyngeal fat. Tiny punctate focus of hemosiderin in the RIGHT parasagittal parietal lobe. No other foci of hemoside rin. Proximal 7th and 8th cranial nerves are normal in appearance. Normal trigeminal nerve root entry zone s. No evidence of enhancing IAC or CP angle mass. No abnormal intracranial enhancement. Normal dural venous sinuses. MR/MR iac's wo/w con* [id number] IMPRESSION: 1. No evidence of enhancing IAC or CP angle mass. Proximal 7th and 8th cranial nerves are normal in appearance. 2. Normal trigeminal nerve root entry zones. 3. Mastoid air cells well aerated. Mild polypoid mucosal thickening in the par anasal sinuses. 4. Mild small vessel changes with moderate parenchymal volume loss worse in th e frontal lobes. 5. Tiny punctate focus of hemosiderin in the RIGHT parasagittal parietal lobe. No other foci of hemosiderin.
[2023-02-20] MEDS: gadobenate dimeglumine 20 mL vial IV (13:23)
== END 2023-02-20 12:17 | disposition home or self-care (01) ==
LOC: RAD 12:19
PROVIDERS: PCP Internal Medicine; Visit Provider Specialist
DX: H90.3 Sensorineural hearing loss, bilateral (principal)
CPT/HCPCS: 70553; A9577

== ENCOUNTER → 2023-04-25 11:17 | Outpatient (BNVA) | payer MEDICARE, OTHER, SELFPAY | PROVIDERS: PCP Internal Medicine; Visit Provider Internal Medicine | DX: E21.0 Primary hyperparathyroidism (principal); R53.83 Other fatigue | CPT/HCPCS: 82310; 83970; 99213 ==

== ENCOUNTER 2023-05-06 11:09 | Oncology outpatient (recurring) (ONCR) | payer MEDICARE, OTHER, SELFPAY ==
[2023-05-06 11:24] VITALS: BP 141/76; PULSE 80; RESP 18; TEMP 36.4; O2SAT 96
[2023-05-06 11:34] LABS: Basophils % 0.7 %; Eosinophils # 0.3 10^3/uL (0.0-0.8); Eosinophils % 5.4 %; Hematocrit 32.4 % (42.0-52.0); Hemoglobin 10.4 g/dL (11.7-16.6); Lymphocytes # 2.4 10^3/uL (0.8-4.8); Lymphocytes % 38.7 %; Mean Corpuscular HGB Conc 32.1 g/dL (30.0-36.0); Mean Corpuscular Hemoglobin 29.6 pg (28.0-34.0); Mean Corpuscular Volume 92.3 fl (80-94); Mean Platelet Volume 9.3 fL (7.4-10.4); Monocytes # 0.5 10^3/uL (0.2-0.9); Monocytes % 7.6 %; Neutrophils # 2.91 10^3/uL (1.8-7.7); Neutrophils % 47.3 %; Nucleated Red Blood Cells % 0 %; Platelet Count 241 10^3/cmm (130-400); Red Blood Count 3.51 10^6/uL (4.1-5.3); Red Cell Distribution Width 14.5 % (12.1-15.1); White Blood Count 6.2 10^3/uL (4.0-10.0)
[2023-05-06 12:06] LABS: Alanine Aminotransferase 9 U/L (0-41); Albumin Level 4.4 g/dL (3.5-5.2); Alkaline Phosphatase 112 U/L (40-130); Aspartate Amino Transferase 17 U/L (0-40); Blood Urea Nitrogen 22 mg/dL (8-23); Calcium 8.9 mg/dL (8.5-10.5); Carbon Dioxide 21 mmol/L (22-29); Chloride 112 mmol/L (98-107); Globulin 2.1 g/dL (1.3-4.6); Glucose 91 mg/dL (65-115); Osmolality Calculated 299 mOsm/kg (285-295); Prostate Specific Antigen 0.055 ng/mL (0-4); Sodium 143 mmol/L (136-145); Total Bilirubin 0.2 mg/dL (0.15-1.2); Total Protein 6.5 g/dL (6.6-8.7)
[2023-05-06 13:23] LABS: Ferritin 203 ng/mL (30-400); Iron 82 ug/dL (59-158); Percent Saturation 31.2 % (20-50); Total Iron Binding Capacity 262 mcg/dl; Unsaturated Iron Binding 180 ug/dL (112-347)
== END 2023-05-23 23:59 | disposition home or self-care (01) ==
PROVIDERS: Nurse Practitioner Family; PCP Internal Medicine; Visit Provider Internal Medicine Medical Oncology
DX: C61 Malignant neoplasm of prostate (principal); Z90.89 Acquired absence of other organs; Z79.899 Other long term (current) drug therapy; Z79.818 Long term (current) use of other agents affecting estrogen receptors and estrogen levels
CPT/HCPCS: 36415; 80053; 82728; 83540; 83550; 84153; 85025; 99214

== ENCOUNTER 2023-08-07 14:00 | Oncology outpatient (recurring) (ONCR) | payer MEDICARE, OTHER, SELFPAY ==
[2023-08-07 14:20] VITALS: BP 128/69; PULSE 88; RESP 16; TEMP 36.8; O2SAT 96
[2023-08-07 14:28] LABS: Basophils # 0.1 10^3/uL (0.0-0.1); Basophils % 0.6 %; Eosinophils # 0.3 10^3/uL (0.0-0.8); Eosinophils % 3.3 %; Hematocrit 33.6 % (37-53); Lymphocytes # 2.5 10^3/uL (0.8-4.8); Lymphocytes % 30.6 %; Mean Corpuscular HGB Conc 32.7 g/dL (30-55); Mean Corpuscular Hemoglobin 30.2 pg (27-33); Mean Corpuscular Volume 92.3 fl (82-101); Mean Platelet Volume 9.6 fL (7.4-10.4); Monocytes # 0.5 10^3/uL (0.2-0.9); Monocytes % 6.4 %; Neutrophils # 4.81 10^3/uL (1.8-7.7); Neutrophils % 58.7 %; Nucleated Red Blood Cells % 0 %; Platelet Count 282 10^3/cmm (157-399); Red Blood Count 3.64 10^6/uL (3.85-5.65); Red Cell Distribution Width 13.8 % (12.1-15.1); White Blood Count 8.18 10^3/uL (3.29-11.43)
[2023-08-07 14:53] LABS: Alanine Aminotransferase 7 U/L (0-41); Albumin Level 4.5 g/dL (3.5-5.2); Alkaline Phosphatase 109 U/L (40-130); Aspartate Amino Transferase 13 U/L (0-40); Blood Urea Nitrogen 22 mg/dL (8-23); Calcium 9.4 mg/dL (8.5-10.5); Carbon Dioxide 21 mmol/L (22-29); Chloride 107 mmol/L (98-107); Globulin 2.3 g/dL (1.3-4.6); Glucose 145 mg/dL (65-115); Osmolality Calculated 298 mOsm/kg (285-295); Prostate Specific Antigen 0.058 ng/mL (0-4); Sodium 141 mmol/L (136-145); Total Bilirubin 0.4 mg/dL (0.15-1.2); Total Protein 6.8 g/dL (6.6-8.7)
== END 2023-08-22 23:59 | disposition home or self-care (01) ==
LOC: ONCMED 14:01
PROVIDERS: Nurse Practitioner Family; PCP Internal Medicine; Visit Provider Internal Medicine Medical Oncology
DX: C61 Malignant neoplasm of prostate (principal); D64.9 Anemia, unspecified; Z79.899 Other long term (current) drug therapy; Z87.891 Personal history of nicotine dependence
CPT/HCPCS: 36415; 80053; 84153; 85025; 99213

== ENCOUNTER 2023-10-25 14:28 | Outpatient (CLI) | payer MEDICARE, SELFPAY ==
[2023-10-25 15:49] LABS: Calcium 9.1 mg/dL (8.5-10.5)
== END 2023-10-25 14:29 | disposition home or self-care (01) ==
LOC: LAB 14:30
PROVIDERS: PCP Internal Medicine; Visit Provider Internal Medicine
DX: E21.0 Primary hyperparathyroidism (principal); R53.83 Other fatigue
CPT/HCPCS: 36415; 82310; 83970

== ENCOUNTER → 2023-10-28 10:54 | Outpatient (BNVA) | payer MEDICARE, OTHER, SELFPAY | PROVIDERS: PCP Internal Medicine; Visit Provider Internal Medicine | DX: E21.0 Primary hyperparathyroidism (principal); R53.83 Other fatigue | CPT/HCPCS: 99214 ==

== ENCOUNTER 2023-10-29 14:26 | Outpatient (CLI) | payer MEDICARE, OTHER, SELFPAY ==
--- NOTE | 2023-10-29 14:33 | CT_ITS ---
WS: [id number] CT ABDOMEN WITHOUT CONTRAST HISTORY: ABDOMINAL PAIN Contiguous single phase 5 mm axial imaging performed to the abdomen. Oral contrast has not been provi ded. Coronal and sagittal reformats are submitted. All CT scans at [facility] use at least on e of these dose optimization techniques: automated exposure control; mA and/or kV adjustment per ciro ent size (includes targeted exams where dose is matched to clinical indication); or iterative reconst ruction. IV CONTRAST: None Oral contrast: No DLP: 255.14 mGy.cm COMPARISON: 10/05/2022 Lower thorax: Subcentimeter nodules at the lung bases. Only 1 of these is noncalcified. No change sin ce 10/05/2022. Heart is normal size. No hiatal hernia. Liver/biliary system: Normal size with no intrahepatic dilatation. Gallbladder: Slightly contracted gallbladder. Gallbladder contains at least 2 calcified gallstones wi th the largest measuring 15 mm. Pancreas: Normal size pancreas and pancreatic duct. No adjacent inflammation. Spleen: Normal size spleen. No mass or infarct. Adrenal glands: Normal. Right kidney: Normal size kidney. 11 mm cyst has been previously described in the mid kidney. No robb l obstruction. Left kidney: Mild cortical atrophy. No obstruction. Aorta: Moderate atherosclerosis with no aneurysm. Mild dilatation of the celiac axis. 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 Lymphadenopathy: None. Free fluid: None. GI tract: Stomach is markedly distended with fluid and food products. The small bowel as visualized i s negative. Scattered diverticula are disease throughout the visualized colon without acute diverticu litis. Abdominal wall: Unremarkable abdominal wall. No hernia. Visualized osseous structures: Mild chronic spondylitic changes in the lumbar spine. LEFT curvature. IMPRESSION: 1. Cholelithiasis without acute cholecystitis. 2. Atrophic LEFT kidney is unchanged. 3. 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 4. Constipation. No adenopathy.
== END 2023-10-29 14:27 | disposition home or self-care (01) ==
LOC: RAD 14:27
PROVIDERS: PCP Internal Medicine; Visit Provider Physician Assistant
DX: K80.20 Calculus of gallbladder without cholecystitis without obstruction (principal); K59.00 Constipation, unspecified
CPT/HCPCS: 74150

== ENCOUNTER 2023-11-04 09:36 | Oncology outpatient (recurring) (ONCR) | payer MEDICARE, OTHER, SELFPAY ==
[2023-11-04 10:00] LABS: Basophils # 0.1 10^3/uL (0.0-0.1); Basophils % 0.7 %; Eosinophils # 0.3 10^3/uL (0.0-0.8); Eosinophils % 4.8 %; Hematocrit 36.8 % (37-53); Lymphocytes # 2.1 10^3/uL (0.8-4.8); Lymphocytes % 30.1 %; Mean Corpuscular HGB Conc 32.1 g/dL (30-55); Mean Corpuscular Hemoglobin 29.8 pg (27-33); Mean Corpuscular Volume 92.9 fl (82-101); Mean Platelet Volume 9.6 fL (7.4-10.4); Monocytes # 0.4 10^3/uL (0.2-0.9); Monocytes % 6.3 %; Neutrophils # 4.01 10^3/uL (1.8-7.7); Neutrophils % 57.8 %; Nucleated Red Blood Cells % 0 %; Platelet Count 237 10^3/cmm (157-399); Red Blood Count 3.96 10^6/uL (3.85-5.65); Red Cell Distribution Width 14.5 % (12.1-15.1); White Blood Count 6.94 10^3/uL (3.29-11.43)
[2023-11-04 10:13] LABS: Carbon Dioxide 26 mmol/L (22-29)
[2023-11-04 10:30] LABS: Blood Urea Nitrogen 17 mg/dL (8-23); Calcium 8.6 mg/dL (8.5-10.5); Glucose 100 mg/dL (65-115); Osmolality Calculated 290 mOsm/kg (285-295)
[2023-11-04 10:31] LABS: Alanine Aminotransferase 14 U/L (0-41); Alkaline Phosphatase 84 U/L (40-130); Anion Gap 11.7 (5-19); Aspartate Amino Transferase 17 U/L (0-40); Chloride 106 mmol/L (98-107); Globulin 2.5 g/dL (1.3-4.6); Potassium 4.7 mmol/L (3.5-5.1); Sodium 139 mmol/L (136-145); Total Bilirubin 0.3 mg/dL (0.15-1.2); Total Protein 6.5 g/dL (6.6-8.7)
== END 2023-11-21 23:59 | disposition home or self-care (01) ==
PROVIDERS: Nurse Practitioner Family; PCP Internal Medicine; Visit Provider Internal Medicine Medical Oncology
DX: C61 Malignant neoplasm of prostate (principal); Z87.891 Personal history of nicotine dependence; Z92.3 Personal history of irradiation; Z79.818 Long term (current) use of other agents affecting estrogen receptors and estrogen levels; Z53.9 Procedure and treatment not carried out, unspecified reason
CPT/HCPCS: 36415; 80053; 84153; 85025; 99213

== ENCOUNTER 2024-01-06 09:32 | Oncology outpatient (recurring) (ONCR) | payer MEDICARE, OTHER, SELFPAY ==
[2024-01-06 09:55] LABS: Basophils # 0.1 10^3/uL (0.0-0.1); Basophils % 0.7 %; Eosinophils # 0.3 10^3/uL (0.0-0.8); Eosinophils % 3.3 %; Hematocrit 38.5 % (37-53); Lymphocytes # 2.6 10^3/uL (0.8-4.8); Lymphocytes % 31.8 %; Mean Corpuscular HGB Conc 32.5 g/dL (30-55); Mean Corpuscular Hemoglobin 29.8 pg (27-33); Mean Corpuscular Volume 91.7 fl (82-101); Mean Platelet Volume 9.4 fL (7.4-10.4); Monocytes # 0.6 10^3/uL (0.2-0.9); Neutrophils % 56.7 %; Nucleated Red Blood Cells % 0 %; Platelet Count 235 10^3/cmm (157-399); Red Cell Distribution Width 14.5 % (12.1-15.1); White Blood Count 8.12 10^3/uL (3.29-11.43)
[2024-01-06 10:25] LABS: Alanine Aminotransferase 11 U/L (0-41); Albumin Level 4.3 g/dL (3.5-5.2); Alkaline Phosphatase 92 U/L (40-130); Anion Gap 15.2 (5-19); Aspartate Amino Transferase 15 U/L (0-40); Blood Urea Nitrogen 19 mg/dL (8-23); Calcium 9.1 mg/dL (8.5-10.5); Carbon Dioxide 24 mmol/L (22-29); Chloride 105 mmol/L (98-107); Globulin 2.6 g/dL (1.3-4.6); Glucose 99 mg/dL (65-115); Osmolality Calculated 292 mOsm/kg (285-295); Potassium 4.2 mmol/L (3.5-5.1); Prostate Specific Antigen 0.101 ng/mL (0-4); Sodium 140 mmol/L (136-145); Total Bilirubin 0.4 mg/dL (0.15-1.2); Total Protein 6.9 g/dL (6.6-8.7)
== END 2024-01-21 23:59 | disposition home or self-care (01) ==
PROVIDERS: Nurse Practitioner Family; PCP Internal Medicine; Visit Provider Internal Medicine Medical Oncology
DX: C61 Malignant neoplasm of prostate (principal); Z87.891 Personal history of nicotine dependence; Z92.3 Personal history of irradiation; Z79.818 Long term (current) use of other agents affecting estrogen receptors and estrogen levels; Z53.9 Procedure and treatment not carried out, unspecified reason; D64.9 Anemia, unspecified; Z79.899 Other long term (current) drug therapy
CPT/HCPCS: 36415; 80053; 84153; 85025; 99213

== ENCOUNTER → 2024-02-04 09:12 | Outpatient (BNVA) | payer MEDICARE, OTHER, SELFPAY | PROVIDERS: PCP Internal Medicine; Visit Provider Anesthesiology Pain Medicine | DX: G89.29 Other chronic pain; M25.562 Pain in left knee; M51.16 Intervertebral disc disorders with radiculopathy, lumbar region | CPT/HCPCS: 99204 ==

== ENCOUNTER 2024-02-05 14:11 | Outpatient (CLI) | payer MEDICARE, OTHER, SELFPAY ==
--- NOTE | 2024-02-05 14:17 | XR_ITS ---
WS: [email or web address] Left knee, 3 views, 02/05/2024 Clinical Data: M25.569 - Pain in unspecified knee Comparison: None. Findings: No fractures or dislocations are seen. The joint spaces are normal. The patella is intact. The soft t issues are unremarkable. Vascular calcification is seen. XR/XR knee LT 3V* [id number] Impression: Negative left knee. Kellgren-Celestino Classification: grade 0 (none): definite absence of x-ray iman nges of osteoarthritis
--- NOTE | 2024-02-05 14:17 | XR_ITS ---
WS: [email or web address] Lumbar spine, 4 views including both obliques, 02/05/2024 Clinical Data: M54.50 - Low back pain, unspecified Comparison: Lumbar spine, 07/16/2018 Findings: No compression fractures or subluxation is seen. There is degenerative disc narrowing at all lumbar l evels from L2-L3 to L5-S1. There are anterior and posterior osteophytes at all lumbar levels from T12 -L1 to L4-L5. There is facet joint arthritis at L1 5-S1 and S1. The obliques show no spondylolysis. T here is a slight levoscoliosis. The transverse processes and SI joints are normal. There are surgical clips in the true pelvis. XR/XR lumbar spine min 4V [id number] Impression: 1. Multilevel degenerative disc narrowing, osteoarthritis and facet joint arthr itis. 2. Negative for spondylolysis on the oblique films.
== END 2024-02-05 14:12 | disposition home or self-care (01) ==
LOC: RAD 14:13
PROVIDERS: PCP Internal Medicine; Visit Provider Anesthesiology Pain Medicine
DX: M25.562 Pain in left knee (principal); G89.29 Other chronic pain; M54.50 Low back pain, unspecified; M51.36 Other intervertebral disc degeneration, lumbar region; M47.817 Spondylosis without myelopathy or radiculopathy, lumbosacral region
CPT/HCPCS: 72110; 73562

== ENCOUNTER → 2024-02-13 14:30 | Outpatient (BNVA) | payer MEDICARE, OTHER, SELFPAY | PROVIDERS: PCP Internal Medicine; Visit Provider Anesthesiology Pain Medicine | DX: M54.16 Radiculopathy, lumbar region (principal) | CPT/HCPCS: 64483; 64484; J1100; J3490 ==

== ENCOUNTER 2024-02-28 12:47 | Outpatient (CLI) | payer MEDICARE, OTHER, SELFPAY ==
--- NOTE | 2024-02-28 13:00 | MR_ITS ---
WS: [email or web address] MRI LUMBAR SPINE NONCONTRAST TECHNIQUE: Sagittal T1, T2 and STIR imaging. Axial T1 and T2 imaging. CLINICAL INFORMATION: M54.16 - Radiculopathy, lumbar region COMPARISON: MRI 2018 FINDINGS: Mild lumbar curve. No acute compression. Disc narrowing throughout the lumbar spine. L1-L2: Slight retrolisthesis. Mild annular bulging. Mild facet arthropathy. Spinal canal and foramen are patent. L2-L3: Slight retrolisthesis. Mild disc bulge with osteophytic ridging. Slight effacement of the vent ral thecal sac with narrowing of the subarticular recess bilaterally. This is progressed compared to previous. Moderate facet arthropathy. Mild RIGHT greater than LEFT foraminal narrowing. L3-L4: Mild disc bulging with slight narrowing RIGHT subarticular recess. Slight impingement traversi ng RIGHT L4 nerve root. This is progressed compared to previous. Moderate facet arthropathy. Tiny LEF T foraminal protrusion with mild LEFT foraminal narrowing. L4-L5: Mild disc bulging with moderate central canal stenosis. Slight impingement of traversing L5 ne rve roots bilaterally. Central canal stenosis has progressed at this level. Moderate facet arthropath y. Moderate LEFT and no significant RIGHT foraminal narrowing. L5-S1: Mild annular bulging. Slight contact of the traversing S1 nerve roots. Moderate facet arthropa thy. Foramen are patent. Visualized pelvic bony structures: Normal. Paravertebral soft tissues: Normal. Partially visualized renal cortical atrophy. MR/MR lumbar spine wo con* [id number] IMPRESSION: 1. Mild lumbar curve. No acute compression. 2. Moderate central canal stenosis L4-5 progressed compared to previous due to disc bulging with facet arthropathy and ligamentum flavum hypertrophy. 3. Moderate LEFT L4-5 foraminal narrowing has progressed. 4. Disc bulging L3-4 with impingement on the RIGHT subarticular recess and tra versing RIGHT L4 nerve root. 5. Small LEFT foraminal protrusion L3-4 with mild LEFT foraminal narrowing. 6. Mild narrowing of the subarticular recess bilaterally L2-3. 7. Moderate facet arthropathy L3-L5. 8. Mild disc bulge L5-S1 with slight contact of the traversing S1 nerve roots.
== END 2024-02-28 12:48 | disposition home or self-care (01) ==
LOC: RAD 12:47
PROVIDERS: PCP Internal Medicine; Visit Provider Anesthesiology Pain Medicine
DX: M47.26 Other spondylosis with radiculopathy, lumbar region (principal); M51.36 Other intervertebral disc degeneration, lumbar region; M48.061 Spinal stenosis, lumbar region without neurogenic claudication
CPT/HCPCS: 72148

== ENCOUNTER → 2024-03-03 10:13 | Outpatient (BNVA) | payer MEDICARE, OTHER, SELFPAY | PROVIDERS: PCP Internal Medicine; Visit Provider Anesthesiology Pain Medicine | DX: M51.16 Intervertebral disc disorders with radiculopathy, lumbar region; M48.061 Spinal stenosis, lumbar region without neurogenic claudication | CPT/HCPCS: 99214 ==

== ENCOUNTER 2024-04-06 11:27 | Oncology outpatient (recurring) (ONCR) | payer MEDICARE, OTHER, SELFPAY ==
[2024-04-06 12:05] LABS: Basophils # 0.1 10^3/uL (0.0-0.1); Basophils % 0.8 %; Eosinophils # 0.3 10^3/uL (0.0-0.8); Eosinophils % 4.2 %; Hematocrit 36.8 % (37-53); Lymphocytes # 2.7 10^3/uL (0.8-4.8); Lymphocytes % 34.4 %; Mean Corpuscular HGB Conc 32.9 g/dL (30-55); Mean Corpuscular Hemoglobin 30.1 pg (27-33); Mean Corpuscular Volume 91.5 fl (82-101); Mean Platelet Volume 9.3 fL (7.4-10.4); Monocytes # 0.5 10^3/uL (0.2-0.9); Monocytes % 6.6 %; Neutrophils # 4.19 10^3/uL (1.8-7.7); Neutrophils % 53.6 %; Nucleated Red Blood Cells % 0 %; Platelet Count 239 10^3/cmm (157-399); Red Blood Count 4.02 10^6/uL (3.85-5.65); Red Cell Distribution Width 14.2 % (12.1-15.1); White Blood Count 7.82 10^3/uL (3.29-11.43)
[2024-04-06 12:57] LABS: Alanine Aminotransferase 13 U/L (0-41); Albumin Level 4.2 g/dL (3.5-5.2); Alkaline Phosphatase 90 U/L (40-130); Anion Gap 18.2 (5-19); Aspartate Amino Transferase 14 U/L (0-40); Blood Urea Nitrogen 23 mg/dL (8-23); Calcium 8.9 mg/dL (8.5-10.5); Carbon Dioxide 23 mmol/L (22-29); Chloride 104 mmol/L (98-107); Globulin 2.6 g/dL (1.3-4.6); Glucose 95 mg/dL (65-115); Osmolality Calculated 293 mOsm/kg (285-295); Potassium 5.2 mmol/L (3.5-5.1); Prostate Specific Antigen 0.189 ng/mL (0-4); Sodium 140 mmol/L (136-145); Total Bilirubin 0.4 mg/dL (0.15-1.2); Total Protein 6.8 g/dL (6.6-8.7)
== END 2024-04-22 23:59 | disposition home or self-care (01) ==
PROVIDERS: Nurse Practitioner Family; PCP Internal Medicine; Visit Provider Internal Medicine Medical Oncology
DX: C61 Malignant neoplasm of prostate (principal); Z87.891 Personal history of nicotine dependence; Z92.3 Personal history of irradiation; Z79.818 Long term (current) use of other agents affecting estrogen receptors and estrogen levels; D64.9 Anemia, unspecified; Z79.899 Other long term (current) drug therapy; Z53.9 Procedure and treatment not carried out, unspecified reason
CPT/HCPCS: 36415; 80053; 84153; 85025; 99214

== ENCOUNTER 2024-05-28 09:54 | Outpatient (CLI) | payer MEDICARE, OTHER, SELFPAY ==
--- NOTE | 2024-05-28 12:55 | XR_ITS ---
WS: [email or web address] Examination: XR abdomen 1V* [id number] Reason for Exam: ABDOMINAL PAIN Date: 05/28/2024 Comparison: 09/30/2023 Findings: Air and stool are seen within the colon. There our mildly prominent loops of small bowel in the mid a bdomen. The psoas margins are well seen. Surgical clips are seen along the pelvic sidewall Degenerative changes of the lumbar spine are present. XR/XR abdomen 1V* [id number] Impression: Mildly prominent loops of small bowel in the mid right abdomen. An ileus could have this appearance.
== END 2024-05-28 09:55 | disposition home or self-care (01) ==
LOC: RADOUTREAD 09:56
PROVIDERS: PCP Internal Medicine; Visit Provider Family Medicine
DX: R10.9 Unspecified abdominal pain (principal)

== ENCOUNTER 2024-07-08 11:30 | Oncology outpatient (recurring) (ONCR) | payer MEDICARE, OTHER, SELFPAY ==
[2024-07-08 12:00] LABS: Basophils % 0.5 %; Eosinophils # 0.3 10^3/uL (0.0-0.8); Eosinophils % 3.8 %; Hematocrit 37.3 % (37-53); Lymphocytes # 2.6 10^3/uL (0.8-4.8); Lymphocytes % 33.2 %; Mean Corpuscular HGB Conc 32.2 g/dL (30-55); Mean Corpuscular Hemoglobin 29.7 pg (27-33); Mean Corpuscular Volume 92.3 fl (82-101); Mean Platelet Volume 9.8 fL (7.4-10.4); Monocytes # 0.5 10^3/uL (0.2-0.9); Monocytes % 6.3 %; Neutrophils # 4.28 10^3/uL (1.8-7.7); Neutrophils % 55.8 %; Nucleated Red Blood Cells % 0 %; Platelet Count 225 10^3/cmm (157-399); Red Blood Count 4.04 10^6/uL (3.85-5.65); Red Cell Distribution Width 14.6 % (12.1-15.1); White Blood Count 7.67 10^3/uL (3.29-11.43)
[2024-07-08 12:31] LABS: Alanine Aminotransferase 11 U/L (0-41); Albumin Level 4.3 g/dL (3.5-5.2); Alkaline Phosphatase 81 U/L (40-130); Anion Gap 13.9 (5-19); Aspartate Amino Transferase 15 U/L (0-40); Blood Urea Nitrogen 16 mg/dL (8-23); Calcium 8.6 mg/dL (8.5-10.5); Carbon Dioxide 26 mmol/L (22-29); Chloride 108 mmol/L (98-107); Creatinine Clr Calc Pharmacy 53.3696; Globulin 2.1 g/dL (1.3-4.6); Glucose 98 mg/dL (65-115); Osmolality Calculated 297 mOsm/kg (285-295); Potassium 4.9 mmol/L (3.5-5.1); Prostate Specific Antigen 0.185 ng/mL (0-4); Sodium 143 mmol/L (136-145); Testosterone Total 2.5 ng/dL (193-740); Total Bilirubin 0.4 mg/dL (0.15-1.2); Total Protein 6.4 g/dL (6.6-8.7)
== END 2024-07-23 23:59 | disposition home or self-care (01) ==
PROVIDERS: Internal Medicine Hematology & Oncology; PCP Internal Medicine; Visit Provider Internal Medicine Medical Oncology
DX: C61 Malignant neoplasm of prostate (principal); D64.9 Anemia, unspecified; Z87.891 Personal history of nicotine dependence; Z92.3 Personal history of irradiation; Z79.818 Long term (current) use of other agents affecting estrogen receptors and estrogen levels; Z79.899 Other long term (current) drug therapy; Z53.9 Procedure and treatment not carried out, unspecified reason
CPT/HCPCS: 36415; 80053; 84153; 84403; 85025; 99214

== ENCOUNTER 2024-10-07 11:28 | Oncology outpatient (recurring) (ONCR) | payer MEDICARE, OTHER, SELFPAY ==
[2024-10-07 12:14] LABS: Basophils # 0.1 10^3/uL (0.0-0.1); Basophils % 0.7 %; Eosinophils # 0.3 10^3/uL (0.0-0.8); Eosinophils % 3.6 %; Hematocrit 38.8 % (37-53); Lymphocytes # 2.8 10^3/uL (0.8-4.8); Lymphocytes % 32.5 %; Mean Corpuscular HGB Conc 32.2 g/dL (30-55); Mean Corpuscular Hemoglobin 30.2 pg (27-33); Mean Corpuscular Volume 93.7 fl (82-101); Monocytes # 0.6 10^3/uL (0.2-0.9); Monocytes % 7.1 %; Neutrophils % 55.8 %; Nucleated Red Blood Cells % 0 %; Platelet Count 228 10^3/cmm (157-399); Red Blood Count 4.14 10^6/uL (3.85-5.65); Red Cell Distribution Width 13.9 % (12.1-15.1); White Blood Count 8.61 10^3/uL (3.29-11.43)
[2024-10-07 12:50] LABS: Alanine Aminotransferase 8 U/L (0-41); Albumin Level 4.2 g/dL (3.5-5.2); Alkaline Phosphatase 81 U/L (40-130); Anion Gap 16.4 (5-19); Aspartate Amino Transferase 15 U/L (0-40); Blood Urea Nitrogen 18 mg/dL (8-23); Calcium 8.9 mg/dL (8.5-10.5); Carbon Dioxide 23 mmol/L (22-29); Chloride 104 mmol/L (98-107); Creatinine Clr Calc Pharmacy 58.4779; Globulin 2.5 g/dL (1.3-4.6); Glucose 88 mg/dL (65-115); Lactate Dehydrogenase 164 U/L (135-225); Osmolality Calculated 289 mOsm/kg (285-295); Potassium 4.4 mmol/L (3.5-5.1); Prostate Specific Antigen 0.246 ng/mL (0-4); Sodium 139 mmol/L (136-145); Total Bilirubin 0.5 mg/dL (0.15-1.2); Total Protein 6.7 g/dL (6.6-8.7)
[2024-10-07 13:20] LABS: Testosterone Total < 2.5 ng/dL (193-740)
== END 2024-10-23 23:59 | disposition home or self-care (01) ==
PROVIDERS: Internal Medicine Hematology & Oncology; PCP Internal Medicine; Visit Provider Internal Medicine Medical Oncology
DX: C61 Malignant neoplasm of prostate (principal); Z87.891 Personal history of nicotine dependence; Z79.899 Other long term (current) drug therapy; Z90.79 Acquired absence of other genital organ(s); Z92.3 Personal history of irradiation; Z79.818 Long term (current) use of other agents affecting estrogen receptors and estrogen levels
CPT/HCPCS: 36415; 80053; 83615; 84153; 84403; 85025; 99213

== ENCOUNTER 2025-01-06 13:00 | Oncology outpatient (recurring) (ONCR) | payer MEDICARE, OTHER, SELFPAY ==
[2025-01-06 13:36] LABS: Basophils # 0.1 10^3/uL (0.0-0.1); Basophils % 0.6 %; Eosinophils # 0.3 10^3/uL (0.0-0.8); Eosinophils % 4.3 %; Hematocrit 36.4 % (37-53); Lymphocytes # 2.7 10^3/uL (0.8-4.8); Lymphocytes % 34.1 %; Mean Corpuscular HGB Conc 32.7 g/dL (30-55); Mean Corpuscular Hemoglobin 30.3 pg (27-33); Mean Corpuscular Volume 92.6 fl (82-101); Mean Platelet Volume 9.7 fL (7.4-10.4); Monocytes # 0.4 10^3/uL (0.2-0.9); Monocytes % 5.2 %; Neutrophils # 4.35 10^3/uL (1.8-7.7); Neutrophils % 55.4 %; Nucleated Red Blood Cells % 0 %; Platelet Count 251 10^3/cmm (157-399); Red Blood Count 3.93 10^6/uL (3.85-5.65); Red Cell Distribution Width 13.8 % (12.1-15.1); White Blood Count 7.86 10^3/uL (3.29-11.43)
[2025-01-06 14:08] LABS: Alanine Aminotransferase 10 U/L (0-41); Albumin Level 4.2 g/dL (3.5-5.2); Alkaline Phosphatase 87 U/L (40-130); Anion Gap 17.1 (5-19); Aspartate Amino Transferase 13 U/L (0-40); Blood Urea Nitrogen 16 mg/dL (8-23); Calcium 8.9 mg/dL (8.5-10.5); Carbon Dioxide 23 mmol/L (22-29); Chloride 105 mmol/L (98-107); Creatinine Clr Calc Pharmacy 59.1193; Globulin 2.3 g/dL (1.3-4.6); Glucose 114 mg/dL (65-115); Osmolality Calculated 294 mOsm/kg (285-295); Potassium 4.1 mmol/L (3.5-5.1); Prostate Specific Antigen 0.312 ng/mL (0-4); Sodium 141 mmol/L (136-145); Total Bilirubin 0.3 mg/dL (0.15-1.2); Total Protein 6.5 g/dL (6.6-8.7)
[2025-01-06 14:10] LABS: Testosterone Total < 2.5 ng/dL (193-740)
== END 2025-01-20 23:59 | disposition home or self-care (01) ==
PROVIDERS: Internal Medicine; PCP Internal Medicine; Visit Provider Internal Medicine Medical Oncology
DX: C61 Malignant neoplasm of prostate (principal); Z87.891 Personal history of nicotine dependence; R03.0 Elevated blood-pressure reading, without diagnosis of hypertension; Z90.79 Acquired absence of other genital organ(s); Z92.3 Personal history of irradiation; Z79.818 Long term (current) use of other agents affecting estrogen receptors and estrogen levels; R97.20 Elevated prostate specific antigen [PSA]
CPT/HCPCS: 36415; 80053; 84153; 84403; 85025; 99214

== ENCOUNTER → 2025-01-14 13:25 | Outpatient (BNVA) | payer MEDICARE, OTHER, SELFPAY | PROVIDERS: PCP Internal Medicine; Visit Provider Nurse Practitioner Family | DX: M51.16 Intervertebral disc disorders with radiculopathy, lumbar region (principal); G89.29 Other chronic pain | CPT/HCPCS: 99213 ==

== ENCOUNTER → 2025-01-18 14:32 | Outpatient (BNVA) | payer MEDICARE, OTHER, SELFPAY | PROVIDERS: PCP Internal Medicine; Visit Provider Nurse Practitioner Family | DX: M79.18 Myalgia, other site (principal); M51.16 Intervertebral disc disorders with radiculopathy, lumbar region; M54.50 Low back pain, unspecified; G89.29 Other chronic pain | CPT/HCPCS: 20553; 99214; J1010; J3490 ==

== ENCOUNTER → 2025-02-01 10:35 | Outpatient (BNVA) | payer MEDICARE, OTHER, SELFPAY | PROVIDERS: PCP Internal Medicine; Visit Provider Nurse Practitioner Family | DX: M51.16 Intervertebral disc disorders with radiculopathy, lumbar region (principal); M54.50 Low back pain, unspecified; G89.29 Other chronic pain | CPT/HCPCS: 99214 ==

== ENCOUNTER → 2025-03-04 09:51 | Outpatient (BNVA) | payer MEDICARE, OTHER, SELFPAY | PROVIDERS: PCP Internal Medicine; Visit Provider Nurse Practitioner Family | DX: M51.16 Intervertebral disc disorders with radiculopathy, lumbar region (principal); G89.29 Other chronic pain | CPT/HCPCS: 99214 ==

== ENCOUNTER → 2025-03-17 09:26 | Outpatient (BNVA) | payer MEDICARE, OTHER, SELFPAY | PROVIDERS: PCP Internal Medicine; Visit Provider Anesthesiology Pain Medicine | DX: M54.16 Radiculopathy, lumbar region (principal); M54.9 Dorsalgia, unspecified | CPT/HCPCS: 64483; 64484; J1100; J3490; J9999 ==

== ENCOUNTER → 2025-03-31 10:56 | Outpatient (BNVA) | payer MEDICARE, OTHER, SELFPAY | PROVIDERS: PCP Internal Medicine; Visit Provider Nurse Practitioner Family | DX: M54.42 Lumbago with sciatica, left side (principal); M54.41 Lumbago with sciatica, right side; G89.29 Other chronic pain | CPT/HCPCS: 99214 ==

== ENCOUNTER 2025-04-07 13:36 | Oncology outpatient (recurring) (ONCR) | payer MEDICARE, OTHER, SELFPAY ==
[2025-04-07 14:00] LABS: Hematocrit 35.3 % (37-53); Hemoglobin 11.60 g/dL (11.27-16.99); Mean Corpuscular HGB Conc 32.9 g/dL (30-55); Mean Corpuscular Hemoglobin 30.3 pg (27-33); Mean Corpuscular Volume 92.2 fl (82-101); Nucleated Red Blood Cells % 0 %; Platelet Count 262 10^3/cmm (157-399); Red Blood Count 3.83 10^6/uL (3.85-5.65); White Blood Count 7.76 10^3/uL (3.29-11.43)
[2025-04-07 14:30] LABS: Alanine Aminotransferase < 5 U/L (0-41); Albumin Level 3.9 g/dL (3.5-5.2); Alkaline Phosphatase 87 U/L (40-130); Anion Gap 18.4 (5-19); Aspartate Amino Transferase 14 U/L (0-40); Blood Urea Nitrogen 17 mg/dL (8-23); Calcium 9.0 mg/dL (8.5-10.5); Carbon Dioxide 22 mmol/L (22-29); Chloride 103 mmol/L (98-107); Globulin 2.6 g/dL (1.3-4.6); Glucose 103 mg/dL (65-115); Osmolality Calculated 290 mOsm/kg (285-295); Potassium 4.4 mmol/L (3.5-5.1); Prostate Specific Antigen 0.236 ng/mL (0-4); Sodium 139 mmol/L (136-145); Total Protein 6.5 g/dL (6.6-8.7)
== END 2025-04-22 23:59 | disposition home or self-care (01) ==
PROVIDERS: Nurse Practitioner Family; PCP Internal Medicine; Visit Provider Internal Medicine
DX: C61 Malignant neoplasm of prostate (principal); R03.0 Elevated blood-pressure reading, without diagnosis of hypertension; Z87.891 Personal history of nicotine dependence; Z90.79 Acquired absence of other genital organ(s); Z92.3 Personal history of irradiation; Z79.818 Long term (current) use of other agents affecting estrogen receptors and estrogen levels; R97.20 Elevated prostate specific antigen [PSA]
CPT/HCPCS: 36415; 80053; 84153; 84403; 85025; 99213

== ENCOUNTER → 2025-04-20 14:56 | Outpatient (BNVA) | payer MEDICARE, OTHER, SELFPAY | PROVIDERS: PCP Internal Medicine; Visit Provider Anesthesiology Pain Medicine | DX: M54.16 Radiculopathy, lumbar region (principal); M47.816 Spondylosis without myelopathy or radiculopathy, lumbar region; M54.9 Dorsalgia, unspecified | CPT/HCPCS: 64483; 64484; J3490; J9999 ==

== ENCOUNTER → 2025-05-04 11:40 | Outpatient (BNVA) | payer MEDICARE, OTHER, SELFPAY | PROVIDERS: PCP Internal Medicine; Visit Provider Nurse Practitioner Family | DX: M51.16 Intervertebral disc disorders with radiculopathy, lumbar region (principal); G89.29 Other chronic pain; Z87.891 Personal history of nicotine dependence | CPT/HCPCS: 99214 ==

== ENCOUNTER → 2025-05-12 14:03 | Outpatient (BNVA) | payer MEDICARE, OTHER, SELFPAY | PROVIDERS: PCP Electrodiagnostic Medicine; Visit Provider Anesthesiology Pain Medicine | DX: M47.816 Spondylosis without myelopathy or radiculopathy, lumbar region (principal) | CPT/HCPCS: 64493; 64494; 64495; J3490; J9999 ==

== ENCOUNTER → 2025-05-27 13:45 | Outpatient (BNVA) | payer MEDICARE, OTHER, SELFPAY | PROVIDERS: PCP Electrodiagnostic Medicine; Visit Provider Nurse Practitioner Family | DX: M51.16 Intervertebral disc disorders with radiculopathy, lumbar region (principal); G89.29 Other chronic pain | CPT/HCPCS: 99214 ==

== ENCOUNTER → 2025-06-08 14:00 | Outpatient (BNVA) | payer MEDICARE, OTHER, SELFPAY | PROVIDERS: PCP Electrodiagnostic Medicine; Visit Provider Anesthesiology Pain Medicine | DX: M47.816 Spondylosis without myelopathy or radiculopathy, lumbar region (principal) | CPT/HCPCS: 64635; 64636; J1100; J9999 ==

== ENCOUNTER → 2025-06-21 12:56 | Outpatient (BNVA) | payer MEDICARE, OTHER, SELFPAY | PROVIDERS: PCP Electrodiagnostic Medicine; Visit Provider Nurse Practitioner Family | DX: M51.16 Intervertebral disc disorders with radiculopathy, lumbar region (principal); M54.9 Dorsalgia, unspecified; G89.29 Other chronic pain | CPT/HCPCS: 99214 ==

== ENCOUNTER → 2025-06-29 13:33 | Outpatient (BNVA) | payer MEDICARE, OTHER, SELFPAY | PROVIDERS: PCP Electrodiagnostic Medicine; Visit Provider Orthopaedic Surgery | DX: Z01.818 Encounter for other preprocedural examination (principal); M51.16 Intervertebral disc disorders with radiculopathy, lumbar region | CPT/HCPCS: 36415; 72110; 80053; 81001; 85025; 99204 ==

== ENCOUNTER 2025-07-07 13:41 | Oncology outpatient (recurring) (ONCR) | payer MEDICARE, OTHER, SELFPAY ==
[2025-07-07 14:06] LABS: Hematocrit 34.3 % (37-53); Hemoglobin 11.20 g/dL (11.27-16.99); Mean Corpuscular HGB Conc 32.7 g/dL (30-55); Mean Corpuscular Hemoglobin 29.9 pg (27-33); Mean Corpuscular Volume 91.7 fl (82-101); Nucleated Red Blood Cells % 0 %; Platelet Count 263 10^3/cmm (157-399); Red Blood Count 3.74 10^6/uL (3.85-5.65); White Blood Count 8.28 10^3/uL (3.29-11.43)
[2025-07-07 14:44] LABS: Alanine Aminotransferase 12 U/L (0-41); Albumin Level 4.3 g/dL (3.5-5.2); Alkaline Phosphatase 76 U/L (40-130); Anion Gap 15.4 (5-19); Aspartate Amino Transferase 14 U/L (0-40); Blood Urea Nitrogen 18 mg/dL (8-23); Calcium 9.1 mg/dL (8.5-10.5); Carbon Dioxide 26 mmol/L (22-29); Chloride 102 mmol/L (98-107); Creatinine Clr Calc Pharmacy 61.1961; Globulin 2.2 g/dL (1.3-4.6); Glucose 114 mg/dL (65-115); Osmolality Calculated 291 mOsm/kg (285-295); Potassium 4.4 mmol/L (3.5-5.1); Prostate Specific Antigen 0.165 ng/mL (0-4); Sodium 139 mmol/L (136-145); Total Protein 6.5 g/dL (6.6-8.7)
== END 2025-07-23 23:59 | disposition home or self-care (01) ==
PROVIDERS: Nurse Practitioner Family; PCP Electrodiagnostic Medicine; Visit Provider Internal Medicine
DX: C61 Malignant neoplasm of prostate (principal); R03.0 Elevated blood-pressure reading, without diagnosis of hypertension; M51.16 Intervertebral disc disorders with radiculopathy, lumbar region; Z87.891 Personal history of nicotine dependence; Z90.79 Acquired absence of other genital organ(s); Z92.3 Personal history of irradiation; Z79.818 Long term (current) use of other agents affecting estrogen receptors and estrogen levels
CPT/HCPCS: 36415; 80053; 84153; 84403; 85025; 99213

== ENCOUNTER 2025-07-08 09:58 | Outpatient (CLI) | payer MEDICARE, OTHER, SELFPAY ==
[2025-07-08 10:34] VITALS: BMI 23.3
--- NOTE | 2025-07-08 10:36 | NMCV_ITS ---
NM maximus perf SPECT r/s* [id number] Matt Bedoya Age: 85 Gender: M : 1940 Exam Date: 07/08/2025 10:45 Ordering Phys: Dom Ball MD Technologist: PEARL Cohen Exam Location: [facility] Indications: CP STRESS TEST Please see separate stress test report in [facility] for full findings IMAGE PROTOCOL Rest/Stress 1 Lexiscan Day Radiopharmaceutical Dose (mCi) Administration Site Administered by Rest: Tc-99m 10.5 IV PEARL Mejias Sestamibi Stress:Tc-99m 32.7 IV PEARL Cohen Sestamilashonda Rest: 08-Jul-2025 60 Discovery 630 Stress: 08-Jul-2025 30 Discovery 630 0.4mg Lexiscan. Images obtained in supine and prone position. SPECT RESULTS Technical Quality: Good Raw Data Analysis: Subdiaphragmatic activity Image Corrections: No attenuation or motion correction applied Summed Stress Score: 8 Summed Rest Score: 10 Summed Difference Score: 2 PERFUSION FINDINGS Resting images showed no change in the pattern of perfusion compared to stress. Myocardial perfusion imaging reveals the defect is consistent with diaphragmatic attenuation. FUNCTIONAL RESULTS (calculated via Gated SPECT) Stress Image LV EF (%): 72 Stress EDV (mL):88 TID: 0.89 Stress ESV (mL):25 FUNCTIONAL FINDINGS: There is normal left ventricular systolic function. IMPRESSIONS Myocardial perfusion images without ischemiia or infarction. There is normal left ventricular systolic function. Hussein Tanner MD, FACC (Electronically Signed) Final Date: 08 July 2025 12:47 S
--- NOTE | 2025-07-08 10:36 | ECG_ITS ---
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 Interpretive Statements Procedure: A total of 0.4 mg of Lexiscan was infused over 20 seconds. The stress phase was continued for a total of 5 minutes. Sestamibi was injected 20 seconds after the Lexiscan infusion. Findings:The patient's baseline blood pressure was 168/92 with a heart rate of 75 bpm. After the Lexiscan was injected the patient's blood pressure gradually decreased to 148/87 and the heart rate increased to a maximum of 91 bpm. At the end of recovery the patient's blood pressure was 163/90 with a heart rate 74 bpm. Resting EKG showed normal sinus rhythm with sinus arrhythmia. During the stress test there were occasional supraventricular ectopic beats. No ST or T wave changes. Conclusion: 1. Normal EKG response to Lexiscan infusion 2. No Lexiscan induced chest pain or cardiac arrhythmia. 3. Normal blood pressure and heart rate response. 4. Nuclear myocardial perfusion scan pending; see separate report. Electronically Signed On 07-08-2025 13:17:26 CDT by Hussein Tanner M.D. [email or web address]
[2025-07-08 11:49] VITALS: BP 163/90; PULSE 76
== END 2025-07-08 09:59 | disposition home or self-care (01) ==
LOC: CDL 10:00
PROVIDERS: PCP Electrodiagnostic Medicine; Visit Provider Family Medicine
DX: R07.9 Chest pain, unspecified (principal)
CPT/HCPCS: 36415; 78452; 93017; 96374; A9500

== ENCOUNTER → 2025-07-20 08:24 | Outpatient (BNVA) | payer MEDICARE, OTHER, SELFPAY | PROVIDERS: PCP Electrodiagnostic Medicine; Referring Provider Family Medicine; Visit Provider Internal Medicine Cardiovascular Disease | DX: Z01.818 Encounter for other preprocedural examination (principal); I10 Essential (primary) hypertension; Z87.891 Personal history of nicotine dependence | CPT/HCPCS: 99204 ==

== ENCOUNTER 2025-07-26 05:53 | Day surgery (SDC) | payer MEDICARE, OTHER, SELFPAY ==
--- NOTE | 2025-07-24 10:53 | ANES.PREANE2 ---
Pre-Anesthetic Assessment Height/Weight: Height 6 ft 1 in Preop Diagnosis: Lumbar disc disease Operation Date: 07/26/25 07:00 Proposed Procedures p Lumbar Spine Decompression(Not Applicable) - Ruel Trinh, DO Was Beta Elizabeth taken within 24 hours: N/A Was Clonidine taken within 24 hours: N/A Social No alcohol and No tobacco Exam alert, oriented x 3, clear to auscultation bilaterally and regular rate & rhythm Airway Submandibular: within normal limits Cervical ROM: within normal limits Mallampati: Class III Comments: Comments: Multiple missing teeth, denies any loose Anesthetic Plan ASA status: 3 Anesthesia: General Other: No prior issues with anesthesia NPO since yesterday evening Patient reports a cough that has been lingering for over a month. Denies any fevers History of hypertension on losartan GERD, controlled with omeprazole Prostate cancer s/p prostatectomy Patient reportedly has poor exercise tolerance per preop visit with Dr. Ashby however patient has since seen cardiology and they have cleared him for surgery today Plan for GETA Medications/Allergies Home Medications ?Medication ?Instructions ?Recorded ?Confirmed ?Last Taken ?Type allopurinol 300 mg tablet 300 mg PO DAILY 12/08/21 07/23/25 07/25/25 History losartan 50 mg tablet 50 mg PO DAILY 12/08/21 07/23/25 07/25/25 History omeprazole 40 mg capsule,delayed 40 mg PO DAILY 12/08/21 07/23/25 07/25/25 History release lorazepam 0.5 mg tablet (Ativan) 0.5 mg PO DAILY PRN anxiety #1 tab 02/18/24 07/23/25 Unknown Rx fluticasone propionate 50 50 mcg intranasal DAILY 04/06/24 07/23/25 07/25/25 History mcg/actuation nasal spray,suspension trazodone 50 mg tablet 50 mg PO .QHS 07/05/25 07/23/25 07/25/25 History tamsulosin 0.4 mg capsule 0.4 mg PO DAILY 07/23/25 07/23/25 07/25/25 History Allergies Allergy/AdvReac Type Severity Reaction Status Date / Time hydrocodone Allergy Mild stomach Verified 07/23/25 12:23 pain amoxicillin (From Augmentin) Allergy vomiting Verified 07/23/25 12:23 clavulanic acid (From Allergy vomiting Verified 07/23/25 12:23 Augmentin) PFSH Anesthesia Medical History (Updated 07/07/25 @ 14:07 by Tamir Kraft) Anemia Bladder outlet obstruction GERD (gastroesophageal reflux disease) Gout Degenerative joint disease of spine Degenerative arthritis Hyperlipidemia Hypertension Prostate cancer Surgical History History of prostatectomy (2003) Radical prostatectomy for prostate cancer Family History Father , AGE 94 Old age Mother , AGE UPPER 80'S Old age Social History Smoking and tobacco/nicotine status: former use of tobacco/nicotine Quit status (tobacco/nicotine): has quit using Year quit tobacco: quit smoking 10 years ago Former quit date comment: smoked for 30 years Alcohol intake: current Alcohol intake frequency: holidays/special occasions only Substance/Drug Use: never Marital status: Current occupational status: retired Data Anesthesia Cardiac Studies: Sestamibi Stress Test (Cardiology) 07/08/25
[2025-07-26] VITALS (11 sets, daily range): BP systolic 92–166; BP diastolic 53–90; PULSE 65–97; RESP 16–19; TEMP 36.1–36.2; O2SAT 94–98; BMI 23.3
[2025-07-26] MEDS: lidocaine-epi 1% 20 mL INJ INJECTION (07:20)
--- NOTE | 2025-07-26 08:08 | PM.OP ---
Operative Report Date of procedure: July 26, 2025 Pre-op diagnosis: Lumbar stenosis with neurogenic claudication Post-op diagnosis: same Procedure done: L4/5 laminectomy with partial facetectomy Surgeon: Ruel Trinh DO Estimated blood loss (mL): 5 Procedure: L4/5 laminectomy with partial facetectomy Patient is brought to the operative suite. After undergoing anesthesia they are placed in the prone position. All areas of impingement are well padded. Patient is then prepped and draped in the normal sterile fashion. A skin incision is made over the L4/5 level. This is confirmed under c-arm guidance. A series of dilators are passed and the tubular retractor is docked on the L4 lamina. A bovie is used to clear the soft tissue off the lamina and the L 4/5 facet joint. A high speed eusebio is then used to perform the laminectomy and take down the medial aspect of the L 4/5 facet joint. A kerrison rongeure was then used to take down the remaining lamina and smooth the edge of the laminectomy up to the point where the ligamentum flavum attaches. Attention was then brought to the medial aspect of the facet joint. The remaining medial aspect of the superior and inferior aspect of the facet joint were taken down with the kerrison from the pedicle of L4 to L 5. The facet joint had significant hypertrophy. Attention was then brought to the Ligamentum Flavum. The ligament was taken down from the lamina of L4 to L5 and out medially to the remaining facet joint. The ligament was thick. The dura was then exposed. The dura was in good repair. The L4 nerve was then traced with a curette out the L4/5 foramen and found to be adequately decompressed. The L5 nerve was traced with a curette around the L5 pedicle. The lateral recess was opened with a kerrison helping to further decompress the L5 nerve. Wound is then irrigated copiously with saline and surgiflo is used to stop any bleeding. The tubular retractor is removed and the wound is closed with vicryl and monocryl suture. Steri strips were applied. A sterile dressing is then placed. Patient was then placed in the supine position and transferred to the PACU in stable condition.
--- NOTE | 2025-07-26 09:15 | ANE.PACU2 ---
Inpatient post-anesthesia follow up: Airway intact: Yes Vital signs: Temperature 97 F Pulse Rate 65 Respiratory Rate 18 Blood Pressure 136/69 Pulse Oximetry 97 Oxygen Delivery Me thod Room Air Oxygen Flow Rate Fraction of Inspir ed Oxygen Hydration adequate: Yes Nausea and vomiting: No Pain level: 1 Mental status: Baseline
--- NOTE | 2025-07-26 12:47 | XR_ITS ---
WS: [id number] Lumbar spine, C-arm fluoroscopy views, 07/26/2025 Clinical Data: or pic Comparison: Lumbar spine, 06/29/2025 Findings: Dr. Trinh performed a lumbar decompression. XR/XR lumbar spine 1V [id number] Impression: Lumbar decompression.
--- NOTE | 2025-07-27 10:47 | W.PM.OPSUD ---
Surgery/Procedure H&P Update DATE OF PROCEDURE: July 26, 2025 DATE H&P PERFORMED: 06/29/25 PREOP DIAGNOSIS: Lumbar disc disease PLANNED PROCEDURE: Operation Date: 07/26/25 07:00 Proposed Procedures p Lumbar Spine Decompression(Not Applicable) - Ruel Trinh DO
== END 2025-07-26 09:15 | disposition home or self-care (01) ==
PROVIDERS: PCP Electrodiagnostic Medicine; Visit Provider Orthopaedic Surgery
PROC: (CPT 63005; principal; 2025-07-26 07:00)
DX: M48.062 Spinal stenosis, lumbar region with neurogenic claudication (principal); I10 Essential (primary) hypertension; K21.9 Gastro-esophageal reflux disease without esophagitis; Z85.46 Personal history of malignant neoplasm of prostate; D64.9 Anemia, unspecified; E78.5 Hyperlipidemia, unspecified; Z87.891 Personal history of nicotine dependence
CPT/HCPCS: 63047; 72020; 76000; A4649; J2371; J2704; J3010; J3490; J7030; J9999

== ENCOUNTER → 2025-08-10 15:08 | Outpatient (BNVA) | payer MEDICARE, OTHER, SELFPAY | PROVIDERS: PCP Electrodiagnostic Medicine; Visit Provider Orthopaedic Surgery | DX: Z98.890 Other specified postprocedural states (principal) | CPT/HCPCS: 99024 ==

== ENCOUNTER → 2025-09-14 13:49 | Outpatient (BNVA) | payer MEDICARE, OTHER, SELFPAY | PROVIDERS: PCP Electrodiagnostic Medicine; Visit Provider Orthopaedic Surgery | DX: Z98.890 Other specified postprocedural states (principal) | CPT/HCPCS: 99024; 99213 ==